=== PATIENT | male | born 1985 | race Caucasian/White ===

== ENCOUNTER 2016-08-25 17:48 | Emergency (ER) | payer OTHER, SELFPAY ==
[2016-08-25 17:59] VITALS: BP 123/67; PULSE 100; O2SAT 96
[2016-08-25] MEDS ORDERED: XYLOCAINE 1% HCL 20 ML MDV IJ ONE (18:13)
[2016-08-25] MEDS ORDERED: BACIGUENT PACKET TP ONE (18:13)
[2016-08-25] MEDS ORDERED: XYLOCAINE 1% HCL 20 ML MDV ONE (18:14)
--- NOTE | 2016-08-25 18:25 | ERPHSYRPT ---
- History of Present Illness Time Seen by Provider: 08/25/16 18:02 Source: patient, family Patient Subjective Stated Complaint: PT WAS ATTEMPTING TO OPEN HIS WINDOW WITH A KNIFE WHEN HE ACCIDENTLY CUT HIS POINTER FINGER OF RIGHT HAND-REPORTS NUMBNESS TO FINGER Triage Nursing Assessment: LAC NOTED TO FINGER-BLEEDING CONTROLLED DAMPPROOFER-CAP REFILL 2 SECONDS Physician History: CC: cut to the right index finger Hx: 30 y/o healthy patient of Dr Lr with up to date tetanus vaccination. He cut right index finger on his knife trying to open car glass. No other injuries. Has some nubm feeling at the tip. He had prior hand injury with resultant numbness in some other fingers. Occurred: just prior to arrival Extremities Pain Location: 2nd finger: right Allergies/Adverse Reactions: Penicillins Allergy (Severe, Verified 03/06/16 16:42) Difficulty Breathing Home Medications: Alprazolam 1 mg [Xanax 1 mg] 1 mg PO BID 03/06/16 [History] Fenofibrate Nanocrystallized [Tricor] 48 mg PO DAILY 03/06/16 [History] Permethrin Cream [Elimite CREAM] 60 gm TP UD 03/06/16 [History] Quetiapine Fumarate [Seroquel Xr] 150 mg PO HS 03/06/16 [History] Hx Tetanus, Diphtheria Vaccination/Date Given: Yes Hx Influenza Vaccination/Date Given: No Hx Pneumococcal Vaccination/Date Given: No Immunizations Up to Date: Yes - Review of Systems Constitutional: No Symptoms Neurological: Parasthesia, No Paralysis - Past Medical History Pertinent Past Medical History: Yes Musculoskeletal History: Fractures Psycho-Social History: Anxiety Other Medical History: HAND, LEG, FACE - Past Surgical History Past Surgical History: Yes Other Surgical History: T&A - Social History Smoking Status: Current every day smoker How long have you smoked: 12 Exposure to second hand smoke: Yes Drug Use: none Patient Lives Alone: No - Nursing Vital Signs Nursing Vital Signs: Initial Vital Signs Temperature 99.0 F Temperature Source Oral Pulse Rate 100 Respiratory Rate 22 Blood Pressure [Left Arm] 123/67 Pain Intensity 0 - Physical Exam General Appearance: alert Cardiovascular/Respiratory Exam: regular rate/rhythm Neuro/Tendon Exam: normal motor functions Mental Status Exam: alert, oriented x 3, cooperative Skin Exam: warm, dry SpO2: 96 Oxygen Delivery: Room Air Comments: 1.5 cm laceration right index finger radial side between PIP and DIP. ROM intact. Mild decrease in 2 point not much different than other fingers of that hand. Can not rule out partial nerve injury and this was explained to pt. No FB noted. Procedures - Laceration/Wound Repair rightindex finger Wound Length (cm): 1.5 Wound's Depth, Shape: linear Wound Explored: clean Irrigated: Yes Hibiclens Prep: Yes Anesthesia: digital block, 1% Lidocaine Volume Anesthetic (ccs): 4 Wound Repaired With: sutures Suture Size/Type: 4-0, prolene Number of Sutures: 3 - Course Nursing assessment & vital signs reviewed: Yes Ordered Tests: Active Orders 24 hr Category Date Time Status Prepare for Sutures STAT Care 08/25/16 18:13 Active Sutures STAT Care 08/25/16 18:13 Active Wound Care STAT Care 08/25/16 18:13 Active Medication Summary Discontinued Medications Generic Name Dose Route Start Last Admin Trade Name Freq PRN Reason Stop Dose Admin Bacitracin 0.9 gm 08/25/16 18:13 08/25/16 18:16 Baciguent Packet TP 08/25/16 18:14 0.9 gm STAT ONE Administration Lidocaine HCl 5 ml 08/25/16 18:13 08/25/16 18:16 Xylocaine 1% Hcl 20 Ml Mdv IJ 08/25/16 18:14 5 ml STAT ONE Administration Lidocaine HCl Confirm 08/25/16 18:14 Xylocaine 1% Hcl 20 Ml Mdv Administered 08/25/16 18:15 Dose 1 ml .ROUTE .STK-MED ONE - Progress Progress Note: 08/25/16 18:24 Discussed referral to hand surgeon next week if numbness is bothersome. He does not plan to see hand. Will repair skin. Wound instr given. Counseled pt/family regarding: diagnosis, need for follow-up - Departure Time of Disposition: 18:56 Departure Disposition: Home Clinical Impression: Laceration of right index finger Condition: Stable Critical Care Time: No Referrals: DOCTOR,NO FAMILY [Primary Care Provider] - KRISTEN LR [COURTESY STAFF] - Instructions: Care for a Laceration After Repair Additional Instructions: LACERATION CARE 1. Do not use peroxide, merthiolate, alcohol, or betadine. 2. Keep wound clean and dry. 3. Change dressing if it becomes wet or soiled. 4. If you must work, wear protective covering. 5. You may return to the emergency department or see your family physician for suture removal. 6. See your family physician or return to the emergency department for any of the following signs or symptoms: A. Redness B. Swelling C. Discolored drainage D. Red streaks E. Elevated temperature F. Other signs of infection Suture removal in 10 days. Report any sign of infection right away.
[2016-08-25] MEDS ORDERED: BACIGUENT PACKET ONE (19:28)
== END 2016-08-25 19:39 | disposition home or self-care (01) ==
LOC: ED 17:48
PROC: 0HQFXZZ Repair Right Hand Skin, External Approach (ICD-10-PCS; principal; 2016-08-25)
DX: S61.210A Laceration without foreign body of right index finger without damage to nail, initial encounter (principal); W26.0XXA Contact with knife, initial encounter
CPT/HCPCS: 12001; 99283

== ENCOUNTER 2016-12-31 17:20 | Emergency (ER) | payer OTHER ==
[2016-12-31] MEDS ORDERED: DUONEB 0.5-3 MG/3 ml Neb IH ONE ×2 (17:50→17:53)
--- NOTE | 2016-12-31 17:52 | ERPHSYRPT ---
- History of Present Illness Source: patient Exam Limitations: no limitations Patient Subjective Stated Complaint: PT REPORTS SORE THROAT BEGINNING YESTERDAY- PRODUCTIVE COUGH BEGINNING TODAY-NEON GREEN SPUTUM-REPORTS SORENESS WHEN COUGHING-UNSURE OF FEVER Triage Nursing Assessment: PT PINK WARM ET KEW-CODCO-RN RESP DISTRESS NOTED- LUNGS CLEAR BILATERALLY-NO RETRACTIONS NOTED-NASAL CONGESTION NOTED Timing/Duration: yesterday Cough Quality/Degree: productive cough Possible Cause: no prior episodes Modifying Factors: Improves With: coughing Associated Symptoms: cough, sore throat Hx Tetanus, Diphtheria Vaccination/Date Given: Yes Hx Influenza Vaccination/Date Given: No Hx Pneumococcal Vaccination/Date Given: No Immunizations Up to Date: Yes <JOSSELINE STEVENSON - Last Filed: 12/31/16 19:03> <ABRAHAM VU - Last Filed: 12/31/16 19:55> - History of Present Illness Time Seen by Provider: 12/31/16 17:46 Physician History: The patient is a 31-year-old male complaining of a sore throat and a cough since yesterday. He smokes. He did not get his flu shot. His been coughing so hard that he sometimes vomits. (JOSSELINE STEVENSON) Allergies/Adverse Reactions: Penicillins Allergy (Severe, Verified 12/31/16 17:25) Difficulty Breathing Home Medications: Fenofibrate Nanocrystallized [Tricor] 48 mg PO DAILY 03/06/16 [History] Quetiapine Fumarate [Seroquel Xr] 150 mg PO HS 03/06/16 [History] Fenofibrate Nanocrystallized [Fenofibrate] 145 mg PO DAILY 12/31/16 [History] Paroxetine HCl [Paxil] 20 mg PO DAILY 12/31/16 [History] Trazodone HCl 200 mg PO HS 12/31/16 [History] - Review of Systems Constitutional: No Fever, No Chills Eyes: No Symptoms Ears, Nose, & Throat: Nose Congestion Respiratory: Cough Cardiac: No Chest Pain, No Edema, No Syncope Abdominal/Gastrointestinal: Vomiting, No Abdominal Pain, No Nausea, No Diarrhea Genitourinary Symptoms: No Dysuria Musculoskeletal: No Back Pain, No Neck Pain Skin: No Rash Neurological: No Dizziness, No Focal Weakness, No Sensory Changes Psychological: No Symptoms Endocrine: No Symptoms Hematologic/Lymphatic: No Symptoms Immunological/Allergic: No Symptoms All Other Systems: Reviewed and Negative <JOSSELINE STEVENSON - Last Filed: 12/31/16 19:03> - Past Medical History Pertinent Past Medical History: Yes Musculoskeletal History: Fractures Psycho-Social History: Anxiety Other Medical History: HAND, LEG, FACE - Past Surgical History Past Surgical History: Yes Other Surgical History: T&A - Social History Smoking Status: Current every day smoker How long have you smoked: 12 Exposure to second hand smoke: Yes Drug Use: none Patient Lives Alone: No <JOSSELINE STEVENSON - Last Filed: 12/31/16 19:03> - Physical Exam General Appearance: no apparent distress, alert Eye Exam: PERRL/EOMI, eyes nml inspection Ears, Nose, Throat Exam: normal ENT inspection, TMs normal, moist mucous membranes, pharyngeal erythema Neck Exam: normal inspection, non-tender, supple, full range of motion Respiratory Exam: wheezing Cardiovascular Exam: regular rate/rhythm, normal heart sounds Gastrointestinal/Abdomen Exam: soft, No tenderness Rectal Exam: not done Back Exam: normal inspection, No CVA tenderness, No vertebral tenderness Extremity Exam: normal inspection, normal range of motion Neurologic Exam: alert, oriented x 3, cooperative, normal mood/affect, sensation nml, No motor deficits Skin Exam: normal color, warm, dry, No rash Lymphatic Exam: No adenopathy SpO2 Interpretation: normal SpO2: 98 Oxygen Delivery: Room Air <JOSSELINE STEVENSON - Last Filed: 12/31/16 19:03> <JOSSELINE STEVENSON - Last Filed: 12/31/16 19:03> - Progress Progress: improved Air Movement: good Blood Culture(s) Obtained: No Antibiotics given: No Counseled pt/family regarding: lab results, diagnosis <ABRAHAM VU - Last Filed: 12/31/16 19:55> - Progress Progress Note: 12/31/16 19:52 Pt. resting comfortably, NAD, O2 sat 99%, RR 14, no resp. difficulty. Given Motrin/Zithromax. (ABRAHAM VU) <JOSSELINE STEVENSON - Last Filed: 12/31/16 19:03> - Departure Time of Disposition: 19:54 Departure Disposition: Home Critical Care Time: No <ABRAHAM VU - Last Filed: 12/31/16 19:55> - Departure Clinical Impression: Acute bronchitis Condition: Stable Referrals: URIEL TOUSSAINT [Primary Care Provider] - Instructions: Cough -- Adult, Bronchitis Additional Instructions: RX: Zpack Motrin or Tylenol for fever/pain Return for worse cough, short of breath, fever, vomiting, dizziness, weakness or any problems. Prescriptions: Azithromycin [Zithromax Tri-Alonzo] 500 mg PO DAILY #3 tablet
[2016-12-31] MEDS ORDERED: MOTRIN 400 MG PO ONE (19:50)
[2016-12-31] MEDS ORDERED: Zithromax 250 MG TABLET PO ONE (19:56)
[2016-12-31] MEDS ORDERED: MOTRIN 400 MG ONE (19:59)
[2016-12-31] MEDS ORDERED: Zithromax 250 MG TABLET ONE (19:59)
[2016-12-31 20:03] VITALS: BP 120/78; PULSE 96; O2SAT 99
== END 2016-12-31 20:03 | disposition home or self-care (01) ==
LOC: ED 17:20
DX: J20.9 Acute bronchitis, unspecified (principal); R05 Cough; J02.9 Acute pharyngitis, unspecified; Z79.899 Other long term (current) drug therapy; R11.10 Vomiting, unspecified
CPT/HCPCS: 87070; 87430; 87631; 94640; 99284; A9270-GY

== ENCOUNTER 2017-04-28 19:17 | Emergency (ER) | payer OTHER ==
--- NOTE | 2017-04-28 19:42 | ERPHSYRPT ---
- History of Present Illness Time Seen by Provider: 04/28/17 19:37 Source: patient Exam Limitations: no limitations Patient Subjective Stated Complaint: fell into hole pain in left foot. no other complaints. able tto walk with pain. Triage Nursing Assessment: alert and oriented swelling to leteral aspect to left foot with swelling. + pedal pulse palpable. Physician History: ABOUT 45 MINUTES AGO AT HOME PT WAS TAKING THE TRASH OUT AND STEPPED IN A HOLE WITH RESULTANT LEFT ANKLE/FOOT PAIN; DENIES PREVIOUS INJURY TO THE LEFT ANKLE; DENIES NUMBNESS OF THE LEFT TOES. PT STATES HE TOOK AN ULTRAM ABOUT 20 MINUTES PRIOR TO ACCIDENT. Allergies/Adverse Reactions: Penicillins Allergy (Severe, Verified 12/31/16 17:25) Difficulty Breathing Home Medications: Fenofibrate Nanocrystallized [Tricor] 48 mg PO DAILY 03/06/16 [History] Quetiapine Fumarate [Seroquel Xr] 150 mg PO HS 03/06/16 [History] Fenofibrate Nanocrystallized [Fenofibrate] 145 mg PO DAILY 12/31/16 [History] Paroxetine HCl [Paxil] 20 mg PO DAILY 12/31/16 [History] Trazodone HCl 200 mg PO HS 12/31/16 [History] Hx Tetanus, Diphtheria Vaccination/Date Given: Yes Hx Influenza Vaccination/Date Given: No Hx Pneumococcal Vaccination/Date Given: No Immunizations Up to Date: Yes - Review of Systems Musculoskeletal: Other (LEFT ANKLE/FOOT PAIN) - Past Medical History Pertinent Past Medical History: Yes Musculoskeletal History: Fractures Psycho-Social History: Anxiety Other Medical History: HAND, LEG, FACE - Past Surgical History Past Surgical History: Yes Other Surgical History: T&A - Social History Smoking Status: Current every day smoker How long have you smoked: 12 Exposure to second hand smoke: Yes Drug Use: none Patient Lives Alone: No - Nursing Vital Signs Nursing Vital Signs: Initial Vital Signs Temperature 97.7 F 04/28/17 19:21 Pulse Rate 84 04/28/17 19:21 Respiratory Rate 16 04/28/17 19:21 Blood Pressure 123/74 04/28/17 19:21 O2 Sat by Pulse Oximetry 98 04/28/17 19:21 Pain Scale Pain Intensity 7 - Physical Exam General Appearance: alert Hips Exam: left: normal range of motion Legs Exam: left leg: normal range of motion Knees Exam: left knee: normal range of motion Ankle Exam: left ankle: normal range of motion, soft tissue tenderness (MILD TENDERNESS OF THE LATERAL ASPECT OF THE LEFT ANKLE WITHOUT EDEMA OR BRUISING.) Foot Exam: left foot: normal range of motion, soft tissue tenderness (MILD TENDERNESS OF THE LATERAL ASPECT OF THE LEFT FOOT WITHOUT EDEMA OR TENDERNESS) Neuro/Tendon Exam: normal sensation, normal motor functions, normal tendon functions Mental Status Exam: alert, cooperative Skin Exam: warm, dry SpO2 Interpretation: normal SpO2: 98 Oxygen Delivery: Room Air - Course Nursing assessment & vital signs reviewed: Yes - Radiology Exams Left Foot X-ray Interpretation: Interpreted by me, No Fracture Left Ankle X-ray Interpretation: Teleradiologist Report (STS. NO FRACTURE.) Ordered Tests: Active Orders 24 hr Category Date Time Status Hubert Bandage Application -[facility] STAT Care 04/28/17 19:40 Active Crutches STAT Care 04/28/17 19:40 Active ANKLE (3 VIEWS) Stat Exams 04/28/17 19:40 Taken FOOT (MINIMUM 3 VIEWS) Stat Exams 04/28/17 19:40 Taken - Departure Time of Disposition: 20:26 Departure Disposition: Home Clinical Impression: LEFT ANKLE/FOOT SPRAIN Condition: Stable Critical Care Time: No Referrals: URIEL TOUSSAINT [Primary Care Provider] - Instructions: Ankle Sprain Additional Instructions: FOLLOW UP WITH PRIVATE DOCTOR TOMORROW. ELEVATE LEFT ANKLE ABOVE HEART LEVEL FOR 24 HOURS. NO WEIGHT BEARING ON LEFT FOOT FOR 4 DAYS. HUBERT BANDAGE TO LEFT ANKLE FOR 4 DAYS. USE CRUTCHES FOR 2 WEEKS. Prescriptions: Naproxen [Naprosyn] 500 mg PO Q12H PRN PRN #20 tablet PRN Reason: Pain
--- NOTE | 2017-04-28 20:54 | XRAY ---
Indication: Pain following injury. Comparison: None 3 nonweightbearing views of the left foot intact with tiny plantar heel spur and posterior talar accessory ossicle. No other bony, articular, or soft tissue abnormalities.
--- NOTE | 2017-04-28 20:56 | XRAY ---
Indication: Pain following injury. Comparison: None 3 views of the left ankle demonstrate soft tissue swelling, tiny plantar heel spur, tiny distal tibial spur anteriorly, and posterior talar accessory ossicle. No other bony, articular, or soft tissue abnormalities. Comment: Preliminary interpretation was made by [facility]. No discrepancy.
[2017-04-28 21:02] VITALS: BP 133/78; PULSE 17; O2SAT 100
== END 2017-04-28 20:31 | disposition home or self-care (01) ==
LOC: ED 19:17
DX: S93.602A Unspecified sprain of left foot, initial encounter (principal); S93.402A Sprain of unspecified ligament of left ankle, initial encounter; W17.2XXA Fall into hole, initial encounter; M25.572 Pain in left ankle and joints of left foot
CPT/HCPCS: 73610; 73630; 99283

== ENCOUNTER 2017-07-03 22:33 | Emergency (ER) | payer OTHER ==
[2017-07-03 22:55] VITALS: BP 115/67; PULSE 86; O2SAT 95
[2017-07-03] MEDS ORDERED: Vibramycin 100 MG PO ONE (23:37)
--- NOTE | 2017-07-03 23:41 | ERPHSYRPT ---
- History of Present Illness Time Seen by Provider: 07/03/17 23:35 Source: patient Patient Subjective Stated Complaint: pt states he has an abcess on his neck that began about 4 days ago Triage Nursing Assessment: pt alert and oriented, answers qeustions approp. pt ambulatory with steady gait noted. respirations nonlabored with lungs cta. scab noted to rt lateral neck with redness surrounding approx 1.5x 1cm Physician History: CC: lesion right neck Hx: 31 y/o patient of Dr Shrestha with sore on right neck for 4 days. GF poked it with a needle. Not much drng. No fever or chills. Tetanus up to date. No hx of MRSA. No other lesions. Some discomfort. Allergies/Adverse Reactions: Penicillins Allergy (Severe, Verified 07/03/17 22:55) Difficulty Breathing Home Medications: Quetiapine Fumarate [Seroquel Xr] 150 mg PO HS 03/06/16 [History] Paroxetine HCl [Paxil] 20 mg PO DAILY 12/31/16 [History] Trazodone HCl 200 mg PO HS 12/31/16 [History] Gabapentin 300 mg PO TID 07/03/17 [History] Tramadol HCl 50 mg [Ultram 50 mg] 50 mg PO Q6H PRN PRN 07/03/17 [History] Hx Tetanus, Diphtheria Vaccination/Date Given: Yes (2015) Hx Influenza Vaccination/Date Given: No Hx Pneumococcal Vaccination/Date Given: No Immunizations Up to Date: Yes - Review of Systems Constitutional: No Fever, No Chills Skin: Skin Lesions Neurological: No Focal Weakness, No Parasthesia - Past Medical History Pertinent Past Medical History: Yes Neurological History: No Pertinent History Cardiac History: No Pertinent History Respiratory History: No Pertinent History Endocrine Medical History: No Pertinent History Musculoskeletal History: Degenerative Disk Disease, Osteoarthritis Psycho-Social History: Anxiety, Depression Other Medical History: Depression, anxiety, insomnia, scoliosis - Past Surgical History Past Surgical History: Yes Other Surgical History: T&A - Social History Smoking Status: Current every day smoker How long have you smoked: 12 Exposure to second hand smoke: Yes Drug Use: none Patient Lives Alone: No - Nursing Vital Signs Nursing Vital Signs: Initial Vital Signs Temperature 98.1 F 07/03/17 22:42 Pulse Rate 86 07/03/17 22:42 Respiratory Rate 16 11/29/17 22:42 Blood Pressure 115/67 07/03/17 22:42 O2 Sat by Pulse Oximetry 95 07/03/17 22:42 Pain Scale Pain Intensity 6 - Physical Exam General Appearance: alert Eye Exam: PERRL/EOMI Ears, Nose, Throat Exam: normal ENT inspection, moist mucous membranes Neck Exam: supple, other (small scabbed lesion right neck with mild redness, no fluctuance, ROM intact) Respiratory Exam: normal breath sounds, lungs clear Cardiovascular Exam: regular rate/rhythm Neurologic Exam: alert, oriented x 3, cooperative Skin Exam: warm SpO2: 95 Oxygen Delivery: Room Air - Course Nursing assessment & vital signs reviewed: Yes - Progress Progress Note: 07/03/17 23:39 Hunter early abscess already drained. Will Rx doxy. Tetanus up to date. Instr given. Counseled pt/family regarding: diagnosis, need for follow-up - Departure Time of Disposition: 23:39 Departure Disposition: Home Clinical Impression: abscess right neck Condition: Stable Critical Care Time: No Referrals: URIEL SHRESTHA [Primary Care Provider] - Instructions: Methicillin-Resistant Staph Infection (MRSA), Cellulitis -- Adult Additional Instructions: WArm compresses 4 times a day. Rx doxycycline. SEe Dr Shrestha Saturday or Saturday if worsens or not improving. Prescriptions: Doxycycline Hyclate 100 mg [Vibramycin 100 MG] 1 tab PO BID #20 tab
[2017-07-03] MEDS ORDERED: Vibramycin 100 MG ONE (23:43)
== END 2017-07-03 23:52 | disposition home or self-care (01) ==
LOC: ED 22:33
DX: L02.11 Cutaneous abscess of neck (principal); Z79.899 Other long term (current) drug therapy
CPT/HCPCS: 99283; A9270-GY

== ENCOUNTER 2017-09-22 21:57 | Emergency (ER) | payer OTHER ==
[2017-09-22 22:21] VITALS: O2SAT 98
--- NOTE | 2017-09-22 22:49 | ERPHSYRPT ---
- History of Present Illness Time Seen by Provider: 09/22/17 22:43 Source: patient, family Exam Limitations: no limitations Patient Subjective Stated Complaint: full feeling in left ear x 3 weeks Triage Nursing Assessment: alert in no distress. fullness feeling in left ear. denies drainage. Physician History: ear fullness for three weeks not going away no n or v and no fever no aching or resp symptoms other family also with similar nasal/ENT symptoms not flu-like but now all have ear infection Severity: moderate ENT Location: ear (L) Associated Symptoms: ear pain (L), nasal congestion/drainage, swollen glands, No cough, No fever Allergies/Adverse Reactions: Penicillins Allergy (Severe, Verified 07/03/17 22:55) Difficulty Breathing Home Medications: Quetiapine Fumarate [Seroquel Xr] 150 mg PO HS 03/06/16 [History] Paroxetine HCl [Paxil] 20 mg PO DAILY 12/31/16 [History] Trazodone HCl 200 mg PO HS 12/31/16 [History] Gabapentin 300 mg PO TID 07/03/17 [History] Tramadol HCl 50 mg [Ultram 50 mg] 50 mg PO Q6H PRN PRN 07/03/17 [History] Hx Tetanus, Diphtheria Vaccination/Date Given: Yes (2015) Hx Influenza Vaccination/Date Given: No Hx Pneumococcal Vaccination/Date Given: No Immunizations Up to Date: Yes - Review of Systems Constitutional: No Fever, No Chills Eyes: No Symptoms Ears, Nose, & Throat: Ear Pain, Nose Congestion Respiratory: No Cough, No Dyspnea Cardiac: No Chest Pain, No Edema, No Syncope Abdominal/Gastrointestinal: No Abdominal Pain, No Nausea, No Vomiting, No Diarrhea Genitourinary Symptoms: No Dysuria Musculoskeletal: No Back Pain, No Neck Pain Skin: No Rash Neurological: No Dizziness, No Focal Weakness, No Sensory Changes Psychological: No Symptoms Endocrine: No Symptoms All Other Systems: Reviewed and Negative - Past Medical History Pertinent Past Medical History: Yes Neurological History: No Pertinent History Cardiac History: No Pertinent History Respiratory History: No Pertinent History Endocrine Medical History: No Pertinent History Musculoskeletal History: Degenerative Disk Disease, Osteoarthritis Psycho-Social History: Anxiety, Depression Other Medical History: Depression, anxiety, insomnia, scoliosis - Past Surgical History Past Surgical History: Yes Other Surgical History: T&A - Social History Smoking Status: Current every day smoker How long have you smoked: 12 Exposure to second hand smoke: No Drug Use: none Patient Lives Alone: No - Nursing Vital Signs Nursing Vital Signs: Initial Vital Signs Temperature 98.8 F 09/22/17 22:06 Pulse Rate 71 09/22/17 22:06 Respiratory Rate 16 09/22/17 22:06 Blood Pressure 148/88 09/22/17 22:06 O2 Sat by Pulse Oximetry 98 09/22/17 22:06 Pain Scale Pain Intensity 2 - Physical Exam General Appearance: no apparent distress, alert Eye Exam: bilateral eye: normal inspection, PERRL, EOMI Ear Exam: left ear: TM red, TM bulging Nasal Exam: discharge Throat Exam: pharynx normal, moist mucus membranes, No tonsillar exudate Neck Exam: supple Cardiovascular/Respiratory Exam: normal breath sounds, regular rate/rhythm Abdominal Exam: non-tender, soft Neurologic Exam: alert, oriented x 3, sensation nml, No motor deficits Skin Exam: normal color, warm, dry SpO2 Interpretation: normal SpO2: 98 Oxygen Delivery: Room Air - Course Nursing assessment & vital signs reviewed: Yes - Progress Counseled pt/family regarding: diagnosis, need for follow-up - Departure Time of Disposition: 22:49 Departure Disposition: Home Clinical Impression: Left otitis media with effusion Condition: Good Critical Care Time: No Referrals: URIEL TOUSSAINT [Primary Care Provider] - Instructions: Ear Infections (Otitis Media) (DC), High Blood Pressure (DC) Additional Instructions: follow up with ENT dr after antibiotics for referral ; followup with your Dr for blood pressure- return meantime if any concerns Prescriptions: Azithromycin 250 mg [Zithromax 250 MG TABLET] 250 mg PO ZPACK #6 tablet
[2017-09-22] MEDS ORDERED: Zithromax 250 MG TABLET PO ONE (22:52)
[2017-09-22] MEDS ORDERED: Zithromax 250 MG TABLET ONE (22:55)
[2017-09-22 23:03] VITALS: BP 142/86; PULSE 68
== END 2017-09-22 23:03 | disposition home or self-care (01) ==
LOC: ED 21:57
DX: H65.92 Unspecified nonsuppurative otitis media, left ear (principal)
CPT/HCPCS: 99283; A9270-GY

== ENCOUNTER 2018-01-05 17:47 | Emergency (ER) | payer OTHER ==
[2018-01-05 18:06] VITALS: O2SAT 97
--- NOTE | 2018-01-05 18:22 | ERPHSYRPT ---
- History of Present Illness Time Seen by Provider: 01/05/18 18:10 Source: patient Exam Limitations: no limitations Patient Subjective Stated Complaint: STATES LAST SATURDAY HAD 31 TEETH EXTRACTED TO GET DENTURES. WAS GIVEN SOME NORCO BUT HAS RUN OUT. TOOK LAST ONE YESTERDAY. TOOK MOTRIN TODAY WITHOUT MUCH RELIEF. Triage Nursing Assessment: AMBULATED TO ROOM PER SELF. SKIN W/D, COLOR NORMAL, RESP EASY. UPPER AND LOWER GUMS OF MOUTH HAVE SLIGHT SWELLING. NO ACTIVE BLEEDING NOTED. Physician History: This is a 32-year-old white male with history of degenerative disc disease, osteoarthritis, anxiety, depression, insomnia, scoliosis Who had all of his teeth pulled last Saturday, December 31 Patient apparently has been having pain since having the teeth pulled he states he took Motrin without relief today. Patient apparently had been given a prescription of hydrocodone however he states he ran out of them. Past medical history includes degenerative disc disease, osteoarthritis, anxiety , depression, insomnia, scoliosis Past surgical history includes tonsillectomy and adenoidectomy Timing/Duration: day(s) (5 days) Severity: moderate Modifying Factors: Improves With: medication (took all of his [place]), other ( Recently had all of his teeth pulled) Associated Symptoms: other (pain in mouth), No nausea, No vomiting, No abdominal pain, No shortness of breath, No heartburn, No diaphoresis, No cough, No chills, No chest pain, No fever, No headaches, No loss of appetite, No malaise, No rash, No syncope, No seizure, No weakness Allergies/Adverse Reactions: Penicillins Allergy (Severe, Verified 01/05/18 18:00) Difficulty Breathing Home Medications: Quetiapine Fumarate [Seroquel Xr] 150 mg PO HS 03/06/16 [History] Paroxetine HCl [Paxil] 20 mg PO DAILY 12/31/16 [History] Trazodone HCl 50 mg PO HS 12/31/16 [History] Gabapentin 300 mg PO TID 07/03/17 [History] Celecoxib 100 mg [celeBREX 100 MG] 100 mg PO DAILY 01/05/18 [History] Methocarbamol [Robaxin-750] 750 mg PO HS 01/05/18 [History] Hx Tetanus, Diphtheria Vaccination/Date Given: Yes Hx Influenza Vaccination/Date Given: No Hx Pneumococcal Vaccination/Date Given: No - Review of Systems Constitutional: No Fever, No Chills Eyes: No Symptoms Ears, Nose, & Throat: Mouth Pain, Other (recently had all of his teeth pulled), No Ear Pain, No Ear Discharge, No Hearing Changes, No Tinnitus, No Nose Pain, No Nose Congestion, No Nose Discharge, No Sinus Drainage, No Epistaxis, No Mouth Swelling, No Loose Teeth, No Throat Pain, No Throat Swelling, No Hoarse, No Painful Swallowing, No Snoring, No Stridor Respiratory: No Cough, No Dyspnea Cardiac: No Chest Pain, No Edema, No Syncope Abdominal/Gastrointestinal: No Abdominal Pain, No Nausea, No Vomiting, No Diarrhea Genitourinary Symptoms: No Dysuria Musculoskeletal: No Back Pain, No Neck Pain Skin: No Rash Neurological: No Dizziness, No Focal Weakness, No Sensory Changes Psychological: No Symptoms Endocrine: No Symptoms All Other Systems: Reviewed and Negative - Past Medical History Pertinent Past Medical History: Yes Neurological History: No Pertinent History Cardiac History: No Pertinent History Respiratory History: No Pertinent History Endocrine Medical History: No Pertinent History Musculoskeletal History: Degenerative Disk Disease, Osteoarthritis Psycho-Social History: Anxiety, Depression Other Medical History: Depression, anxiety, insomnia, scoliosis - Past Surgical History Past Surgical History: Yes Other Surgical History: T&A, TEETH EXTRACTION - Social History Smoking Status: Current every day smoker How long have you smoked: 14 Exposure to second hand smoke: No Drug Use: none Patient Lives Alone: No - Nursing Vital Signs Nursing Vital Signs: Initial Vital Signs Temperature 98.9 F 01/05/18 17:56 Pulse Rate 83 01/05/18 17:56 Respiratory Rate 16 01/05/18 17:56 Blood Pressure 136/79 01/05/18 17:56 O2 Sat by Pulse Oximetry 97 01/05/18 17:56 Pain Scale Pain Intensity 9 - Physical Exam General Appearance: mild distress Eye Exam: PERRL/EOMI, eyes nml inspection, other (fundi are unremarkable) Ears, Nose, Throat Exam: TMs normal, pharynx normal, other (patient status post multiple tooth extractions) Neck Exam: normal inspection, non-tender, supple, full range of motion Respiratory Exam: normal breath sounds, lungs clear, No respiratory distress Cardiovascular Exam: regular rate/rhythm, normal heart sounds, normal peripheral pulses Gastrointestinal/Abdomen Exam: soft, normal bowel sounds, No tenderness, No mass Back Exam: normal inspection, normal range of motion, No CVA tenderness, No vertebral tenderness Extremity Exam: normal inspection, normal range of motion, pelvis stable Neurologic Exam: alert, oriented x 3, cooperative, change management coordinator II-XII nml as tested, normal mood/affect, nml cerebellar function, nml station & gait, sensation nml, No motor deficits Skin Exam: normal color, warm, dry, No rash Lymphatic Exam: No adenopathy SpO2 Interpretation: normal (97%) SpO2: 97 Oxygen Delivery: Room Air - Course Nursing assessment & vital signs reviewed: Yes Ordered Tests: Medication Summary Discontinued Medications Generic Name Dose Route Start Last Admin Trade Name Norah PRN Reason Stop Dose Admin Acetaminophen/Codeine Phosphate 2 tab 01/05/18 18:24 01/05/18 18:40 Tylenol #3 Tablet PO 01/05/18 18:25 2 tab SENT HOME W/ PATIENT ONE Administration Acetaminophen/Codeine Phosphate Confirm 01/05/18 18:36 Tylenol #3 Tablet Administered 01/05/18 18:37 Dose 2 tab .ROUTE .STK-MED ONE Hydrocodone Bitart/Acetaminophen 1 tab 01/05/18 18:24 01/05/18 18:39 Red [place] 5/325 Mg PO 01/05/18 18:25 1 tab STAT ONE Administration Hydrocodone Bitart/Acetaminophen Confirm 01/05/18 18:37 [place] 5/325 Mg Administered 01/05/18 18:38 Dose 1 tab .ROUTE .STK-MED ONE - Progress Progress: improved Progress Note: 01/05/18 18:21 32-year-old white male with history of degenerative disc disease osteoarthritis anxiety depression and insomnia scoliosis. Who has a history of chronic pain and sees a pain missile control pilot. Recently with all of his teeth pulled he apparently was given [place] 5/325 5 days ago however he did taken all of them. Patient states that he is on Celebrex and Robaxin He states he took Motrin today but teeth continued to hurt. Will give patient one [place] tablet 5/325 in the emergency room today and sent him two tylenol #3 to to go home with. He will need to follow-up with his dentist. Or pain missile control pilot 01/05/18 18:45 - Departure Time of Disposition: 18:23 Departure Disposition: Home Clinical Impression: Mouth pain, status post multiple tooth extractions Condition: Fair Critical Care Time: No Referrals: URIEL TOUSSAINT [Primary Care Provider] - Additional Instructions: Return home. Follow-up with your dentist or pain missile control pilot. Return for acute distress or for severe symptoms. tylenol # 3 one every 6 hours as needed # 2 tablets sent home with patient.
[2018-01-05] MEDS ORDERED: Tylenol #3 Tablet PO ONE (18:24)
[2018-01-05] MEDS ORDERED: NORCO 5/325 MG PO ONE (18:24)
[2018-01-05] MEDS ORDERED: Tylenol #3 Tablet ONE (18:36)
[2018-01-05] MEDS ORDERED: NORCO 5/325 MG ONE (18:37)
[2018-01-05 18:52] VITALS: BP 128/88; PULSE 80
== END 2018-01-05 18:52 | disposition home or self-care (01) ==
LOC: ED 17:47
DX: K13.79 Other lesions of oral mucosa (principal); Z98.818 Other dental procedure status
CPT/HCPCS: 99283; A9270-GY

== ENCOUNTER 2018-03-21 22:17 | Emergency (ER) | payer OTHER ==
--- NOTE | 2018-03-21 23:04 | ERPHSYRPT ---
- History of Present Illness Time Seen by Provider: 03/21/18 22:58 Source: patient Exam Limitations: no limitations Patient Subjective Stated Complaint: pt states he had his teeth pulled approx 2 months ago and has a bone spur sticking thru his gumline on the top right side; increased pain and discomfort today. Triage Nursing Assessment: pt a&o x3; skin p, w, & d; ambulated to room per self ; family at bedside. Physician History: The patient is a 32-year-old male with his girlfriend complaining of pain in his right upper gum that began this morning and has worsened throughout the day. He had all of his teeth pulled 2 months ago under anesthesia. Since that time, he said numerous bone fragments come out of different areas of his gums. Today this bone fragment that is coming out is very painful. He will call his dentist on Saturday if it has not completely fallen out by Saturday. He denies fever or chills. Timing/Duration: gradual onset, this afternoon Severity: severe ENT Location: dental Prearrival Treatment: no prearrival treatment Modifying Factors: Improves With: nothing Associated Symptoms: tooth pain Allergies/Adverse Reactions: Penicillins Allergy (Severe, Verified 03/21/18 22:29) Difficulty Breathing Home Medications: Quetiapine Fumarate [Seroquel Xr] 150 mg PO HS 03/06/16 [History] Paroxetine HCl [Paxil] 40 mg PO DAILY 12/31/16 [History] Trazodone HCl 150 mg PO HS 12/31/16 [History] Gabapentin 300 mg PO QID 07/03/17 [History] Methocarbamol [Robaxin-750] 750 mg PO HS 01/05/18 [History] Ranitidine HCl [Zantac] 150 mg PO DAILY 03/21/18 [History] Hx Tetanus, Diphtheria Vaccination/Date Given: Yes Hx Influenza Vaccination/Date Given: No Hx Pneumococcal Vaccination/Date Given: No Immunizations Up to Date: No - Review of Systems Constitutional: No Fever, No Chills Eyes: No Symptoms Ears, Nose, & Throat: Other (gum pain) Respiratory: No Cough, No Dyspnea Cardiac: No Chest Pain, No Edema, No Syncope Abdominal/Gastrointestinal: No Abdominal Pain, No Nausea, No Vomiting, No Diarrhea Genitourinary Symptoms: No Dysuria Musculoskeletal: No Back Pain, No Neck Pain Skin: No Rash Neurological: No Dizziness, No Focal Weakness, No Sensory Changes Psychological: No Symptoms Endocrine: No Symptoms Hematologic/Lymphatic: No Symptoms Immunological/Allergic: No Symptoms All Other Systems: Reviewed and Negative - Past Medical History Pertinent Past Medical History: Yes Neurological History: No Pertinent History Cardiac History: No Pertinent History Respiratory History: No Pertinent History Endocrine Medical History: No Pertinent History Musculoskeletal History: Degenerative Disk Disease, Osteoarthritis Psycho-Social History: Anxiety, Depression Other Medical History: Depression, anxiety, insomnia, scoliosis - Past Surgical History Past Surgical History: Yes Other Surgical History: T&A, TEETH EXTRACTION - Social History Smoking Status: Current every day smoker How long have you smoked: 15 Exposure to second hand smoke: No Drug Use: none Patient Lives Alone: No - Nursing Vital Signs Nursing Vital Signs: Initial Vital Signs Temperature 98.3 F 03/21/18 22:21 Pulse Rate 68 03/21/18 22:21 Respiratory Rate 18 03/21/18 22:21 Blood Pressure 144/93 03/21/18 22:21 O2 Sat by Pulse Oximetry 98 03/21/18 22:21 Pain Scale Pain Intensity 9 - Physical Exam General Appearance: mild distress Eye Exam: bilateral eye: PERRL, EOMI Ear Exam: bilateral ear: auricle normal Nasal Exam: normal inspection Throat Exam: maxillary swelling (The patient has all of his dentition surgically removed. There is a small bone fragment that is beginning to protrude from the upper right anterior aspect of his gums. There is surrounding erythema and swelling.) Neck Exam: supple Cardiovascular/Respiratory Exam: normal breath sounds, regular rate/rhythm Abdominal Exam: non-tender, soft Neurologic Exam: alert, oriented x 3, sensation nml, No motor deficits Skin Exam: normal color, warm, dry SpO2 Interpretation: normal SpO2: 98 Oxygen Delivery: Room Air - Progress Progress: improved Counseled pt/family regarding: diagnosis, need for follow-up - Departure Time of Disposition: 23:08 Departure Disposition: Home Clinical Impression: Dental abscess Condition: Stable Critical Care Time: No Referrals: URIEL TOUSSAINT [Primary Care Provider] - Additional Instructions: You have a dental abscess on the right upper side of her mouth. You have a bone fragment from prior surgical removal of your teeth is beginning to protrude through your gum line. You were given Toradol 60 mg by IM and clindamycin 300 mg orally in the ER. You may take Schlater one tablet every 4-6 hours as needed. Take clindamycin 300 mg 4 times a day for 10 days. Call your dentist on Saturday for further evaluation. Prescriptions: Clindamycin HCl 1 cap PO QID #40 capsule
[2018-03-21] MEDS ORDERED: TORAdol 30 mg Injection IM ONE (23:09)
[2018-03-21] MEDS ORDERED: CLEOCIN 150 MG CAPSULE PO ONE (23:09)
[2018-03-21] MEDS ORDERED: NORCO 5/325 MG PO ONE (23:11)
[2018-03-21] MEDS ORDERED: TORAdol 30 mg Injection ONE (23:29)
[2018-03-21] MEDS ORDERED: NORCO 5/325 MG ONE (23:29)
[2018-03-21] MEDS ORDERED: CLEOCIN 150 MG CAPSULE ONE (23:29)
[2018-03-21 23:42] VITALS: BP 127/89; PULSE 87; O2SAT 96
== END 2018-03-21 23:45 | disposition home or self-care (01) ==
LOC: ED 22:17
DX: K04.7 Periapical abscess without sinus (principal)
CPT/HCPCS: 96372; 99283; J1885; A9270-GY

== ENCOUNTER 2019-03-28 21:55 | Emergency (ER) | payer OTHER ==
[2019-03-28] MEDS ORDERED: DUONEB 0.5-3 MG/3 ml Neb IH ONE ×4 (22:07→23:51)
--- NOTE | 2019-03-28 22:11 | ERPHSYRPT ---
- History of Present Illness Time Seen by Provider: 03/28/19 22:01 Source: patient Exam Limitations: no limitations Physician History: Pt states, he has been congested, coughing for few days, coughing up clear phlegm and vomiting occasionally after coughing, developed sudden SOB 1 hour ago , when bathing his dogs. He denies fever, chills, no chest pain, vomiting blood or coffee ground material, no diarrhea, or other complaints. Timing/Duration: hour(s) (1) Activities at Onset: activity Severity of Dyspnea-Max: severe Severity of Dyspnea-Current: moderate Possible Cause: no prior episodes Modifying Factors: Improves With: deep breath Associated Symptoms: cough, productive cough Allergies/Adverse Reactions: Penicillins Allergy (Severe, Verified 03/28/19 22:09) Difficulty Breathing Home Medications: Quetiapine Fumarate [Seroquel Xr] 150 mg PO HS 03/06/16 [History] Paroxetine HCl [Paxil] 40 mg PO DAILY 12/31/16 [History] Trazodone HCl 150 mg PO HS 12/31/16 [History] Gabapentin 300 mg PO QID 07/03/17 [History] Methocarbamol [Robaxin-750] 750 mg PO HS 01/05/18 [History] Ranitidine HCl [Zantac] 150 mg PO DAILY 03/21/18 [History] Hx Tetanus, Diphtheria Vaccination/Date Given: Yes Hx Influenza Vaccination/Date Given: No Hx Pneumococcal Vaccination/Date Given: No - Review of Systems Constitutional: No Symptoms Ears, Nose, & Throat: No Symptoms Respiratory: Cough, Dyspnea Cardiac: No Symptoms Abdominal/Gastrointestinal: Vomiting Genitourinary Symptoms: No Symptoms Musculoskeletal: No Symptoms Skin: No Symptoms Neurological: No Symptoms All Other Systems: Reviewed and Negative - Past Medical History Pertinent Past Medical History: Yes Neurological History: No Pertinent History Cardiac History: No Pertinent History Respiratory History: No Pertinent History Endocrine Medical History: Moore's Disease Musculoskeletal History: Degenerative Disk Disease Psycho-Social History: Anxiety, Depression Other Medical History: History of DDD along spine. - Past Surgical History Past Surgical History: Yes Other Surgical History: T&A, TEETH EXTRACTION - Social History Smoking Status: Current every day smoker How long have you smoked: 15 Exposure to second hand smoke: No Drug Use: none Patient Lives Alone: No - Nursing Vital Signs Nursing Vital Signs: Initial Vital Signs Temperature 98.5 F 03/28/19 21:56 Pulse Rate 98 H 03/28/19 21:56 Respiratory Rate 18 03/28/19 21:56 Blood Pressure 126/88 03/28/19 21:56 O2 Sat by Pulse Oximetry 96 03/28/19 21:56 Pain Scale Pain Intensity 8 - Physical Exam General Appearance: no apparent distress Eye Exam: eyes nml inspection Ears, Nose, Throat Exam: hearing grossly normal, normal ENT inspection, normal pharynx Neck Exam: normal inspection, non-tender, supple, No carotid bruit, No JVD, No lymphadenopathy (R), No lymphadenopathy (L) Respiratory Exam: normal breath sounds, lungs clear, airway intact, No chest tenderness, No respiratory distress Cardiovascular/Chest Exam: normal heart sounds, regular rate/rhythm, normal peripheral pulses, No murmur, No edema, No JVD Abdominal/Gastrointestinal Exam: soft, normal bowel sounds, No tenderness, No distention, No mass, No guarding, No rebound, No organomegaly Extremity Exam: non-tender, No no calf tenderness, No no pedal edema, No cleo' s sign Peripheral Pulses Exam: dorsalis-pedis (R): 2+, dorsalis-pedis (L): 2+ Neurologic Exam: alert, oriented x 3, cooperative, normal mood/affect Skin Exam: normal color, warm, dry, No rash, No petechiae, No cyanosis, No diaphoresis Lymphatic Exam: No adenopathy SpO2 Interpretation: normal O2 Delivery: Room Air - Course Nursing assessment & vital signs reviewed: Yes EKG Interpreted by Me: RATE (103/min), Sinus Tach, NORMAL AXIS, NORMAL QRS, Non- specific ST Changes, Other (repeat Ek:29 AM: NSR 83/min, unchanged, negative) - Radiology Exams Chest X-ray Interpretation: Interpreted by me, Negative Ordered Tests: Active Orders 24 hr Category Date Time Status Agency Appointments Supervisor STAT Care 03/28/19 22:06 Active EKG-ER Only STAT Care 03/28/19 22:05 Active EKG-ER Only [facility] 03/29/19 00:08 Active IV Insertion [facility] 03/28/19 22:05 Active CHEST 2 VIEWS (PA AND LAT) Stat Exams 03/28/19 22:05 Taken CBC W DIFF Stat Lab 03/28/19 22:14 Completed CK-Creatinine Phosphokinase Stat Lab 03/28/19 22:14 Completed CMP Stat Lab 03/28/19 22:14 Completed D-DIMER QUANTITATION Stat Lab 03/28/19 22:14 Completed Lactic Acid Stat Lab 03/28/19 22:05 Completed MAGNESIUM Stat Lab 03/28/19 22:14 Completed NT PRO BNP Stat Lab 03/28/19 22:14 Completed PROTIME WITH INR Stat Lab 03/28/19 22:14 Completed PTT Stat Lab 03/28/19 22:14 Completed TROPONIN Q3H Lab 03/28/19 22:14 Completed TROPONIN Q3H Lab 03/29/19 00:33 Completed TROPONIN Q3H Lab 03/29/19 03:15 Ordered TROPONIN Q3H Lab 03/29/19 06:15 Ordered TROPONIN Q3H Lab 03/29/19 09:15 Ordered Urine Triage Profile Stat Lab 03/28/19 23:40 Completed Peak Expiratory Flow Rate ONCE RT 03/28/19 22:33 Active Respiratory Therapy Assessment DAILY RT 03/28/19 22:34 Active Medication Summary Discontinued Medications Generic Name Dose Route Start Last Admin Trade Name Freq PRN Reason Stop Dose Admin Albuterol/Ipratropium 3 ml 03/28/19 22:07 03/28/19 22:31 Duoneb 0.5-3 Mg/3 Ml Neb IH 03/28/19 22:08 3 ml STAT ONE Administration Albuterol/Ipratropium Confirm 03/28/19 22:21 Duoneb 0.5-3 Mg/3 Ml Neb Administered 03/28/19 22:22 Dose 3 ml IH .STK-MED ONE Albuterol/Ipratropium 3 ml 03/28/19 23:39 03/28/19 23:54 Duoneb 0.5-3 Mg/3 Ml Neb IH 03/28/19 23:40 3 ml STAT ONE Administration Albuterol/Ipratropium Confirm 03/28/19 23:51 Duoneb 0.5-3 Mg/3 Ml Neb Administered 03/28/19 23:52 Dose 3 ml IH .STK-MED ONE Lab/Rad Data: Laboratory Result Diagrams 03/28/19 22:14 03/28/19 22:14 Laboratory Results 03/29/19 03/28/19 03/28/19 Range/Units 00:33 23:40 22:14 WBC (4.0-10.5) K/mm3 RBC (4.1-5.6) M/mm3 Hgb (12.5-18.0) gm/dl Hct (42-50) % MCV (78-100) fl MCH (26-32) pg MCHC (32-36) g/dl RDW (11.5-14.0) % Plt Count (150-450) K/mm3 MPV (6-9.5) fl Gran % (36.0-66.0) % Eos # (Auto) (0-0.5) Absolute Lymphs (auto) (1.0-4.6) Absolute Monos (auto) (0.0-1.3) Lymphocytes % (24.0-44.0) % Monocytes % (0.0-12.0) % Eosinophils % (0.00-5.0) % Basophils % (0.0-0.4) % Absolute Granulocytes (1.4-6.9) Basophils # (0-0.4) PT (8.83-12.87) SECONDS INR (0.8-3.0) APTT (24.1-36.1) SECONDS D-Dimer (215-500) ng/mL Sodium (137-145) mmol/L Potassium (3.5-5.1) mmol/L Chloride (98-107) mmol/L Carbon Dioxide (22-30) mmol/L Anion Gap (5-15) MEQ/L BUN (9-20) mg/dL Creatinine (0.66-1.25) mg/dL Estimated GFR ML/MIN Glucose (74-106) mg/dL Lactic Acid (0.4-2.0) Calcium (8.4-10.2) mg/dL Magnesium (1.6-2.3) mg/dL Total Bilirubin (0.2-1.3) mg/dL AST (17-59) U/L ALT (0-50) U/L Alkaline Phosphatase (38-126) U/L Creatine Kinase (55-170) U/L Troponin I < 0.012 < 0.012 (0.000-0.034) ng/mL NT-Pro-B Natriuret Pep (0-450) pg/mL Serum Total Protein (6.3-8.2) g/dL Albumin (3.5-5.0) g/dL Urine Opiates Level NEGATIVE (NEGATIVE) Ur Methadone NEGATIVE (NEGATIVE) Urine Barbiturates NEGATIVE (NEGATIVE) Ur Phencyclidine (PCP) NEGATIVE (NEGATIVE) Urine Amphetamine NEGATIVE (NEGATIVE) U Benzodiazepine Level NEGATIVE (NEGATIVE) Urine Cocaine NEGATIVE (NEGATIVE) Urine Marijuana (THC) NEGATIVE (NEGATIVE) 03/28/19 03/28/19 03/28/19 Range/Units 22:14 22:14 22:14 WBC 7.9 (4.0-10.5) K/mm3 RBC 4.81 (4.1-5.6) M/mm3 Hgb 14.9 (12.5-18.0) gm/dl Hct 44.7 (42-50) % MCV 92.9 (78-100) fl MCH 31.0 (26-32) pg MCHC 33.3 (32-36) g/dl RDW 13.9 (11.5-14.0) % Plt Count 282 (150-450) K/mm3 MPV 9.7 H (6-9.5) fl Gran % 56.6 (36.0-66.0) % Eos # (Auto) 0.54 H (0-0.5) Absolute Lymphs (auto) 2.11 (1.0-4.6) Absolute Monos (auto) 0.76 (0.0-1.3) Lymphocytes % 26.8 (24.0-44.0) % Monocytes % 9.6 (0.0-12.0) % Eosinophils % 6.9 H (0.00-5.0) % Basophils % 0.1 (0.0-0.4) % Absolute Granulocytes 4.46 (1.4-6.9) Basophils # 0.01 (0-0.4) PT 11.2 (8.83-12.87) SECONDS INR 0.99 (0.8-3.0) APTT 33.7 (24.1-36.1) SECONDS D-Dimer 296 (215-500) ng/mL Sodium 142 (137-145) mmol/L Potassium 3.9 (3.5-5.1) mmol/L Chloride 106 (98-107) mmol/L Carbon Dioxide 28 (22-30) mmol/L Anion Gap 11.9 (5-15) MEQ/L BUN 11 (9-20) mg/dL Creatinine 1.20 (0.66-1.25) mg/dL Estimated GFR > 60.0 ML/MIN Glucose 94 (74-106) mg/dL Lactic Acid (0.4-2.0) Calcium 9.6 (8.4-10.2) mg/dL Magnesium 2.0 (1.6-2.3) mg/dL Total Bilirubin 0.30 (0.2-1.3) mg/dL AST 28 (17-59) U/L ALT 33 (0-50) U/L Alkaline Phosphatase 44 (38-126) U/L Creatine Kinase 99 (55-170) U/L Troponin I (0.000-0.034) ng/mL NT-Pro-B Natriuret Pep 24.7 (0-450) pg/mL Serum Total Protein 7.5 (6.3-8.2) g/dL Albumin 4.4 (3.5-5.0) g/dL Urine Opiates Level (NEGATIVE) Ur Methadone (NEGATIVE) Urine Barbiturates (NEGATIVE) Ur Phencyclidine (PCP) (NEGATIVE) Urine Amphetamine (NEGATIVE) U Benzodiazepine Level (NEGATIVE) Urine Cocaine (NEGATIVE) Urine Marijuana (THC) (NEGATIVE) 03/28/19 Range/Units 22:05 WBC (4.0-10.5) K/mm3 RBC (4.1-5.6) M/mm3 Hgb (12.5-18.0) gm/dl Hct (42-50) % MCV (78-100) fl MCH (26-32) pg MCHC (32-36) g/dl RDW (11.5-14.0) % Plt Count (150-450) K/mm3 MPV (6-9.5) fl Gran % (36.0-66.0) % Eos # (Auto) (0-0.5) Absolute Lymphs (auto) (1.0-4.6) Absolute Monos (auto) (0.0-1.3) Lymphocytes % (24.0-44.0) % Monocytes % (0.0-12.0) % Eosinophils % (0.00-5.0) % Basophils % (0.0-0.4) % Absolute Granulocytes (1.4-6.9) Basophils # (0-0.4) PT (8.83-12.87) SECONDS INR (0.8-3.0) APTT (24.1-36.1) SECONDS D-Dimer (215-500) ng/mL Sodium (137-145) mmol/L Potassium (3.5-5.1) mmol/L Chloride (98-107) mmol/L Carbon Dioxide (22-30) mmol/L Anion Gap (5-15) MEQ/L BUN (9-20) mg/dL Creatinine (0.66-1.25) mg/dL Estimated GFR ML/MIN Glucose (74-106) mg/dL Lactic Acid 1.5 (0.4-2.0) Calcium (8.4-10.2) mg/dL Magnesium (1.6-2.3) mg/dL Total Bilirubin (0.2-1.3) mg/dL AST (17-59) U/L ALT (0-50) U/L Alkaline Phosphatase (38-126) U/L Creatine Kinase (55-170) U/L Troponin I (0.000-0.034) ng/mL NT-Pro-B Natriuret Pep (0-450) pg/mL Serum Total Protein (6.3-8.2) g/dL Albumin (3.5-5.0) g/dL Urine Opiates Level (NEGATIVE) Ur Methadone (NEGATIVE) Urine Barbiturates (NEGATIVE) Ur Phencyclidine (PCP) (NEGATIVE) Urine Amphetamine (NEGATIVE) U Benzodiazepine Level (NEGATIVE) Urine Cocaine (NEGATIVE) Urine Marijuana (THC) (NEGATIVE) - Progress Progress: improved Air Movement: good Progress Note: 03/29/19 00:36 Pt states, improved after 2 Duonebs; he has been afebrile, denies chest pain, or severe SOB, reviewed his labs and X ray, repeat troponin is negative, discussed with her, he is discharged in stable condition and advised to rest x 2 -3 days, drink plenty of fluids, and follow up with his physician in 2-3 days. Blood Culture(s) Obtained: No Antibiotics given: Yes (Z-Alonzo) Counseled pt/family regarding: lab results, diagnosis, need for follow-up, rad results - Departure Departure Disposition: Home Clinical Impression: Bronchitis Condition: Stable Critical Care Time: No Referrals: URIEL TOUSSAINT [Primary Care Provider] - Instructions: Acute Bronchitis, Adult (DC) Additional Instructions: Rest x 2-3 days, drink plenty of fluids, and follow up with your physician in 2- 3 days, return if severe shortness of breath, chest pain, vomiting, fever> 102 F ! Prescriptions: Albuterol Sulfate [Albuterol Sulfate Hfa] 8.5 gm IH Q4H PRN #2 [email or web address] PRN Reason: Shortness Of Breath/Wheezing Azithromycin [Zithromax] 250 mg PO DAILY 5 Days #6 tablet Methylprednisolone Packet [Medrol Dosepack] 4 mg PO UD #1 packet
[2019-03-28 22:34] LABS: INR 0.99 (0.8-3.0); PROTIME 11.2 SECONDS (8.83-12.87)
[2019-03-28 22:36] LABS: PTT 33.7 SECONDS (24.1-36.1)
[2019-03-28 22:41] LABS: BASOPHIL % 0.1 % (0.0-0.4); Basophil (Absolute #) 0.01 (0-0.4); Eosinophil % 6.9 % (0.00-5.0); Eosinophil (Absolute #) 0.54 (0-0.5); Granulocyte Absolute (ANC) 4.46 (1.4-6.9); Granulocytes % 56.6 % (36.0-66.0); Hematocrit 44.7 % (42-50); Hemoglobin 14.9 gm/dl (12.5-18.0); Lymphocyte (Absolute #) 2.11 (1.0-4.6); Lymphocytes % 26.8 % (24.0-44.0); Mean Cell Volume 92.9 fl (78-100); Mean Corpuscular Hgb Concent. 33.3 g/dl (32-36); Mean Platelet Volume 9.7 fl (6-9.5); Monocyte (Absolute #) 0.76 (0.0-1.3); Monocytes % 9.6 % (0.0-12.0); Platelet Count 282 K/mm3 (150-450); Red Blood Count 4.81 M/mm3 (4.1-5.6); Red Cell Distribution Width 13.9 % (11.5-14.0); White Blood Count 7.9 K/mm3 (4.0-10.5)
[2019-03-28 22:47] LABS: ALBUMIN 4.4 g/dL (3.5-5.0); ALKALINE PHOSPHATASE 44 U/L (38-126); ANION GAP 11.9 MEQ/L (5-15); BLOOD UREA NITROGEN 11 mg/dL (9-20); CHLORIDE 106 mmol/L (98-107); CK-Creatinine Phosphokinase 99 U/L (55-170); Calcium 9.6 mg/dL (8.4-10.2); Carbon Dioxide 28 mmol/L (22-30); Glucose 94 mg/dL (74-106); NT PRO BNP 24.7 pg/mL (0-450); Potassium 3.9 mmol/L (3.5-5.1); SGOT/AST 28 U/L (17-59); SGPT/ALT 33 U/L (0-50); SODIUM 142 mmol/L (137-145); Total Protein 7.5 g/dL (6.3-8.2)
[2019-03-28 23:58] LABS: Amphetamine,Urine NEGATIVE (NEGATIVE); Barbiturate,Urine NEGATIVE (NEGATIVE); Benzodiazepine,Urine NEGATIVE (NEGATIVE); Cocaine,Urine NEGATIVE (NEGATIVE); Methadone,Urine NEGATIVE (NEGATIVE); Opiate,Urine NEGATIVE (NEGATIVE); PCP,Urine NEGATIVE (NEGATIVE); THC,Urine NEGATIVE (NEGATIVE)
[2019-03-29 01:06] VITALS: BP 130/80; PULSE 98; O2SAT 99
--- NOTE | 2019-03-29 06:57 | XRAY ---
Indication: Chest pain, nausea, vomiting, sneezing, and sinus congestion. Comparison: None PA/lateral chest is clear. Heart and mediastinal structures within normal limits. Bony thorax intact. Impression: Nonacute chest.
== END 2019-03-29 01:29 | disposition home or self-care (01) ==
LOC: ED 21:55
DX: J40 Bronchitis, not specified as acute or chronic (principal)
CPT/HCPCS: 36000; 36415; 71046; 80053; 80307; 82550; 83605; 83735; 83880; 84484; 85025; 85379; 85610; 85730; 93005; 93041; 94150; 94640; 99284; A9270-GY

== ENCOUNTER 2019-08-27 08:54 | Emergency (ER) | payer OTHER ==
[2019-08-27] MEDS ORDERED: BABY ASPIRIN 81 MG CHEW PO ONE (09:14)
[2019-08-27] MEDS ORDERED: Sodium Chloride 0.9% 1000 ML 1,000 ML IV STA (09:14)
[2019-08-27] MEDS ORDERED: Zofran 4 MG/2 ML VIAL IV ONE (09:16)
--- NOTE | 2019-08-27 09:39 | ERPHSYRPT ---
- History of Present Illness Time Seen by Provider: 08/27/19 09:07 Source: patient Exam Limitations: no limitations Patient Subjective Stated Complaint: states on saturday had a dizzy spell and checked blood sugar and it was 93. had another dizzy spell today and wants to get checked. also having chronic pain in both feet and ankles. denies any other symptoms. Triage Nursing Assessment: ambulated to room per self. skin w/d, color normal, resp easy. medhat. a/o times four. orta without difficulty Physician History: Patient is here with dizziness and lightheadedness that occurred at work early today. No falls or trauma. Patient did have a blood glucose of 93 at the time. He is not a diabetic and takes no diabetic medications. He denied chest pain or SOB at the time. Location: generalized Quality: dizziness, lightheadedness Radiation: none Severity: moderate Duration: 2-3 days Timing: intermittent Modifying factors/associated signs and symptoms: no chest pain, or SOB Timing/Duration: yesterday Severity: mild Associated Symptoms: nausea, No vomiting Allergies/Adverse Reactions: Penicillins Allergy (Severe, Verified 08/27/19 09:06) Difficulty Breathing Home Medications: Quetiapine Fumarate [Seroquel Xr] 150 mg PO HS 03/06/16 [History] Paroxetine HCl [Paxil] 40 mg PO DAILY 12/31/16 [History] Trazodone HCl 150 mg PO HS 12/31/16 [History] Gabapentin 300 mg PO QID 07/03/17 [History] Methocarbamol [Robaxin-750] 750 mg PO HS 01/05/18 [History] Ranitidine HCl [Zantac] 150 mg PO DAILY 03/21/18 [History] Hydrocodone/Acetaminophen [Melissa 10-325 Tablet] 1 each PO 5XD 08/27/19 [History] Hx Tetanus, Diphtheria Vaccination/Date Given: Yes Hx Influenza Vaccination/Date Given: Yes Hx Pneumococcal Vaccination/Date Given: No - Review of Systems Constitutional: No Fever, No Chills Eyes: No Symptoms Ears, Nose, & Throat: No Symptoms Respiratory: No Cough, No Dyspnea Cardiac: No Chest Pain, No Edema, No Syncope Abdominal/Gastrointestinal: No Abdominal Pain, No Nausea, No Vomiting, No Diarrhea Genitourinary Symptoms: No Dysuria Musculoskeletal: No Back Pain, No Neck Pain Skin: No Rash Neurological: No Dizziness, No Focal Weakness, No Sensory Changes Psychological: No Symptoms Endocrine: No Symptoms Immunological/Allergic: Pollen Allergy All Other Systems: Reviewed and Negative (Lightheaded and dizzy) - Past Medical History Pertinent Past Medical History: Yes Neurological History: No Pertinent History ENT History: No Pertinent History Cardiac History: No Pertinent History Respiratory History: No Pertinent History Endocrine Medical History: [place]'s Disease Musculoskeletal History: Degenerative Disk Disease Psycho-Social History: Anxiety, Depression Other Medical History: History of DDD along spine; hypoglycemia - Past Surgical History Past Surgical History: Yes Other Surgical History: T&A, TEETH EXTRACTION - Social History Smoking Status: Current every day smoker How long have you smoked: 14 Exposure to second hand smoke: Yes Drug Use: none Patient Lives Alone: No - Nursing Vital Signs Nursing Vital Signs: Initial Vital Signs Temperature 97.6 F 08/27/19 09:01 Pulse Rate 77 08/27/19 09:01 Respiratory Rate 16 08/27/19 09:01 Blood Pressure 126/77 08/27/19 09:01 O2 Sat by Pulse Oximetry 95 08/27/19 09:01 Pain Scale Pain Intensity 0 - Physical Exam General Appearance: no apparent distress, alert Eye Exam: PERRL/EOMI, eyes nml inspection Ears, Nose, Throat Exam: normal ENT inspection, TMs normal, pharynx normal, moist mucous membranes Neck Exam: normal inspection, non-tender, supple, full range of motion Respiratory Exam: normal breath sounds, lungs clear, No respiratory distress Cardiovascular Exam: regular rate/rhythm, normal heart sounds, normal peripheral pulses Gastrointestinal/Abdomen Exam: soft, normal bowel sounds, No tenderness, No mass Back Exam: normal inspection, normal range of motion, No CVA tenderness, No vertebral tenderness Extremity Exam: normal inspection, normal range of motion, pelvis stable Neurologic Exam: alert, oriented x 3, cooperative, normal mood/affect, nml cerebellar function, nml station & gait, sensation nml, No motor deficits Skin Exam: normal color, warm, dry, No rash Lymphatic Exam: No adenopathy SpO2: 95 Comments: Motor: There is no pronator drift of out-stretched arms. Muscle bulk and tone are normal. Strength is full bilaterally. Reflexes: Reflexes are 2+ and symmetric at the biceps, triceps, knees, and ankles. Plantar responses are flexor. Sensory: Light touch sense are intact in bilateral upper and lower extremities. There is no sign of neglect. Coordination: Rapid alternating movements are intact. There is no dysmetria on [id number] and [id number]. There are no abnormal or extraneous movements. Romberg is absent. Gait/Stance: Posture is normal. Gait is steady with normal steps, base, arm swing, and turning. Heel and toe walking are normal. Tandem gait is normal. No obvious deformity, sensation intact, 2+ capillary refill, 2 point tactile discrimination intact. 5 out of 5 strength. Full range of motion without pain. Compartments are soft, nontender. Overlying skin shows no tenting, bruising, ecchymosis. 08/27/19 09:40 Ordered Tests: Active Orders 24 hr Category Date Time Status Sole Conditioner STAT Care 08/27/19 09:15 Active EKG-ER Only STAT Care 08/27/19 09:14 Active CHEST 2 VIEWS (PA AND LAT) Stat Exams 08/27/19 09:14 Completed CBC W DIFF Stat Lab 08/27/19 09:41 Completed CMP Stat Lab 08/27/19 09:41 Completed LIPASE Stat Lab 08/27/19 09:41 Completed TROPONIN Q3H Lab 08/27/19 09:41 Completed TROPONIN Q3H Lab 08/27/19 12:15 Ordered TROPONIN Q3H Lab 08/27/19 15:15 Ordered TROPONIN Q3H Lab 08/27/19 18:15 Ordered TROPONIN Q3H Lab 08/27/19 21:15 Ordered UA W/RFX UR CULTURE Stat Lab 08/27/19 09:41 Completed Medication Summary Discontinued Medications Generic Name Dose Route Start Last Admin Trade Name Norah PRN Reason Stop Dose Admin Aspirin 324 mg 08/27/19 09:14 08/27/19 09:45 Baby Aspirin 81 Mg Chew PO 08/27/19 09:15 324 mg STAT ONE Administration Aspirin Confirm 08/27/19 09:44 Baby Aspirin 81 Mg Chew Administered 08/27/19 09:45 Dose 324 mg .ROUTE .STK-MED ONE Sodium Chloride 1,000 mls @ 999 mls/hr 08/27/19 09:14 08/27/19 09:46 Sodium Chloride 0.9% 1000 Ml IV 08/27/19 10:14 999 mls/hr .Q1H1M STA Administration Sodium Chloride Confirm 08/27/19 09:44 Sodium Chloride 0.9% 1000 Ml Administered 08/27/19 09:45 Dose 1,000 mls @ ud .ROUTE .STK-MED ONE Ondansetron HCl 8 mg 08/27/19 09:16 08/27/19 09:46 Zofran 4 Mg/2 Ml Vial IV 08/27/19 09:17 8 mg STAT ONE Administration Ondansetron HCl Confirm 08/27/19 09:44 Zofran 4 Mg/2 Ml Vial Administered 08/27/19 09:45 Dose 4 mg .ROUTE .STK-MED ONE Ondansetron HCl Confirm 08/27/19 09:47 Zofran 4 Mg/2 Ml Vial Administered 08/27/19 09:48 Dose 4 mg .ROUTE .STK-MED ONE Lab/Rad Data: Laboratory Result Diagrams 08/27/19 09:41 08/27/19 09:41 Laboratory Results 08/27/19 08/27/19 08/27/19 Range/Units 09:41 09:41 09:41 WBC (4.0-10.5) K/mm3 RBC (4.1-5.6) M/mm3 Hgb (12.5-18.0) gm/dl Hct (42-50) % MCV (78-100) fl MCH (26-32) pg MCHC (32-36) g/dl RDW (11.5-14.0) % Plt Count (150-450) K/mm3 MPV (7.5-11.0) fl Gran % (36.0-66.0) % Eos # (Auto) (0-0.5) Absolute Lymphs (auto) (1.0-4.6) Absolute Monos (auto) (0.0-1.3) Lymphocytes % (24.0-44.0) % Monocytes % (0.0-12.0) % Eosinophils % (0.00-5.0) % Basophils % (0.0-0.4) % Absolute Granulocytes (1.4-6.9) Basophils # (0-0.4) Sodium 140 (137-145) mmol/L Potassium 3.6 (3.5-5.1) mmol/L Chloride 107 (98-107) mmol/L Carbon Dioxide 27 (22-30) mmol/L Anion Gap 9.4 (5-15) MEQ/L BUN 7 L (9-20) mg/dL Creatinine 0.96 (0.66-1.25) mg/dL Estimated GFR > 60.0 ML/MIN Glucose 91 (74-106) mg/dL Calcium 8.9 (8.4-10.2) mg/dL Total Bilirubin 0.20 (0.2-1.3) mg/dL AST 24 (17-59) U/L ALT 23 (0-50) U/L Alkaline Phosphatase 43 (38-126) U/L Troponin I < 0.012 (0.000-0.034) ng/mL Serum Total Protein 6.7 (6.3-8.2) g/dL Albumin 3.8 (3.5-5.0) g/dL Lipase 98 (23-300) U/L Urine Color YELLOW (YELLOW) Urine Appearance CLEAR (CLEAR) Urine pH 5.0 (5-6) Ur Specific [place] 1.011 (1.005-1.025) Urine Protein NEGATIVE (Negative) Urine Ketones NEGATIVE (NEGATIVE) Urine Blood NEGATIVE (0-5) Manjit/ul Urine Nitrite NEGATIVE (NEGATIVE) Urine Bilirubin NEGATIVE (NEGATIVE) Urine Urobilinogen NEGATIVE (0-1) mg/dL Ur Leukocyte Esterase NEGATIVE (NEGATIVE) Urine WBC (Auto) 0-2 (0-5) /HPF Urine RBC (Auto) 0-2 (0-2) /HPF U Epithel Cells (Auto) RARE (FEW) /HPF Urine Bacteria (Auto) RARE (NEGATIVE) /HPF Urine Mucus (Auto) SLIGHT (NEGATIVE) /HPF Urine Culture Reflexed NO (NO) Urine Glucose NEGATIVE (NEGATIVE) mg/dL 08/27/19 Range/Units 09:41 WBC 6.5 (4.0-10.5) K/mm3 RBC 4.56 (4.1-5.6) M/mm3 Hgb 14.3 (12.5-18.0) gm/dl Hct 42.3 (42-50) % MCV 92.8 (78-100) fl MCH 31.4 (26-32) pg MCHC 33.8 (32-36) g/dl RDW 14.6 H (11.5-14.0) % Plt Count 203 (150-450) K/mm3 MPV 10.0 (7.5-11.0) fl Gran % 53.4 (36.0-66.0) % Eos # (Auto) 0.47 (0-0.5) Absolute Lymphs (auto) 1.81 (1.0-4.6) Absolute Monos (auto) 0.75 (0.0-1.3) Lymphocytes % 27.7 (24.0-44.0) % Monocytes % 11.5 (0.0-12.0) % Eosinophils % 7.2 H (0.00-5.0) % Basophils % 0.2 (0.0-0.4) % Absolute Granulocytes 3.49 (1.4-6.9) Basophils # 0.01 (0-0.4) Sodium (137-145) mmol/L Potassium (3.5-5.1) mmol/L Chloride (98-107) mmol/L Carbon Dioxide (22-30) mmol/L Anion Gap (5-15) MEQ/L BUN (9-20) mg/dL Creatinine (0.66-1.25) mg/dL Estimated GFR ML/MIN Glucose (74-106) mg/dL Calcium (8.4-10.2) mg/dL Total Bilirubin (0.2-1.3) mg/dL AST (17-59) U/L ALT (0-50) U/L Alkaline Phosphatase (38-126) U/L Troponin I (0.000-0.034) ng/mL Serum Total Protein (6.3-8.2) g/dL Albumin (3.5-5.0) g/dL Lipase (23-300) U/L Urine Color (YELLOW) Urine Appearance (CLEAR) Urine pH (5-6) Ur Specific [place] (1.005-1.025) Urine Protein (Negative) Urine Ketones (NEGATIVE) Urine Blood (0-5) Manjit/ul Urine Nitrite (NEGATIVE) Urine Bilirubin (NEGATIVE) Urine Urobilinogen (0-1) mg/dL Ur Leukocyte Esterase (NEGATIVE) Urine WBC (Auto) (0-5) /HPF Urine RBC (Auto) (0-2) /HPF U Epithel Cells (Auto) (FEW) /HPF Urine Bacteria (Auto) (NEGATIVE) /HPF Urine Mucus (Auto) (NEGATIVE) /HPF Urine Culture Reflexed (NO) Urine Glucose (NEGATIVE) mg/dL - Progress Progress: improved Progress Note: 08/27/19 09:41 - We'll obtain basic labs, fluids, EKG, troponin, chest x-ray - I feel comfortable with one time negative troponin given symptoms have improved and started greater then 6 hours ago. - EKG shows no ST changes - my read. See full read below. - O2 saturations consistently greater than 95%. - CXR shows no pneumonia, pneumothorax - my read - no other obvious lab abnormalities 08/27/19 10:40 Patient feels improved will follow up with PCP for reexam in the next 24-48 hours Counseled pt/family regarding: lab results, diagnosis, need for follow-up - Departure Departure Disposition: Home Clinical Impression: Lightheadedness Condition: Stable Critical Care Time: No Referrals: URIEL TOUSSAINT [Primary Care Provider] - Instructions: Dizziness, Nonvertigo, (DC)
[2019-08-27] MEDS ORDERED: BABY ASPIRIN 81 MG CHEW ONE (09:44)
[2019-08-27] MEDS ORDERED: Sodium Chloride 0.9% 1000 ML 1,000 ML ONE (09:44)
[2019-08-27] MEDS ORDERED: Zofran 4 MG/2 ML VIAL ONE ×2 (09:44→09:47)
[2019-08-27 09:46] LABS: Absolute Neutrophil Ct (ANC) 3.49 (1.4-6.9); BASOPHIL % 0.2 % (0.0-0.4); Basophil (Absolute #) 0.01 (0-0.4); Eosinophil % 7.2 % (0.00-5.0); Eosinophil (Absolute #) 0.47 (0-0.5); Hematocrit 42.3 % (42-50); Hemoglobin 14.3 gm/dl (12.5-18.0); Lymphocyte (Absolute #) 1.81 (1.0-4.6); Lymphocytes % 27.7 % (24.0-44.0); Mean Cell Volume 92.8 fl (78-100); Mean Corpuscular Hemoglobin 31.4 pg (26-32); Mean Corpuscular Hgb Concent. 33.8 g/dl (32-36); Monocyte (Absolute #) 0.75 (0.0-1.3); Monocytes % 11.5 % (0.0-12.0); Neutrophil % 53.4 % (36.0-66.0); Platelet Count 203 K/mm3 (150-450); Red Blood Count 4.56 M/mm3 (4.1-5.6); Red Cell Distribution Width 14.6 % (11.5-14.0); White Blood Count 6.5 K/mm3 (4.0-10.5)
[2019-08-27 09:51] LABS: Appearance CLEAR (CLEAR); Bilirubin NEGATIVE (NEGATIVE); Blood NEGATIVE Ery/ul (0-5); Glucose NEGATIVE (NEGATIVE); Ketones NEGATIVE (NEGATIVE); Leukocyte Esterase NEGATIVE (NEGATIVE); Mucus SLIGHT /HPF (NEGATIVE); Nitrite NEGATIVE (NEGATIVE); Protein,Urine Dip NEGATIVE (Negative); Specific Gravity 1.011 (1.005-1.025); Urobilinogen NEGATIVE mg/dL (0-1)
[2019-08-27 09:54] LABS: ALBUMIN 3.8 g/dL (3.5-5.0); ALKALINE PHOSPHATASE 43 U/L (38-126); ANION GAP 9.4 MEQ/L (5-15); BLOOD UREA NITROGEN 7 mg/dL (9-20); Bacteria RARE /HPF (NEGATIVE); CHLORIDE 107 mmol/L (98-107); Calcium 8.9 mg/dL (8.4-10.2); Carbon Dioxide 27 mmol/L (22-30); Creatinine 1 0.96 mg/dL (0.66-1.25); Epithelial Cells RARE /HPF (FEW); Glucose 91 mg/dL (74-106); LIPASE 98 U/L (23-300); Potassium 3.6 mmol/L (3.5-5.1); RBC 0-2 /HPF (0-2); SGOT/AST 24 U/L (17-59); SGPT/ALT 23 U/L (0-50); SODIUM 140 mmol/L (137-145); Total Protein 6.7 g/dL (6.3-8.2); WBC 0-2 /HPF (0-5)
--- NOTE | 2019-08-27 09:59 | XRAY ---
Indication: Dizziness. Pneumonia. Comparison: March 28, 2019. PA/lateral chest again demonstrates normal heart and lungs. Bony thorax intact.
[2019-08-27 10:24] VITALS: BP 125/56; PULSE 73
[2019-08-27 10:41] VITALS: O2SAT 95
== END 2019-08-27 10:31 | disposition home or self-care (01) ==
LOC: ED 08:54
DX: R42 Dizziness and giddiness (principal)
CPT/HCPCS: 36000; 36415; 71046; 80053; 81001; 83690; 84484; 85025; 93005; 93041; 96374; 99284; J2405; A9270-GY

== ENCOUNTER 2019-09-07 07:18 | Emergency (ER) | payer OTHER ==
--- NOTE | 2019-09-07 07:21 | ERPHSYRPT ---
- History of Present Illness Time Seen by Provider: 09/07/19 07:21 Source: patient Exam Limitations: no limitations Physician History: 33 y/o white male presents with coughing, runny nose, nasal congestion for 3 days. children with viral illness. pt with sore throat. no cp, no abd pain, no n /v/d Timing/Duration: day(s) (3) Cough Quality/Degree: moderate, dry cough Possible Cause: no prior episodes Modifying Factors: Improves With: coughing Associated Symptoms: cough, nasal congestion, nasal drainage, sore throat Allergies/Adverse Reactions: Penicillins Allergy (Severe, Verified 09/07/19 07:27) Difficulty Breathing Home Medications: Quetiapine Fumarate [Seroquel Xr] 150 mg PO HS 03/06/16 [History] Paroxetine HCl [Paxil] 40 mg PO DAILY 12/31/16 [History] Trazodone HCl 150 mg PO HS 12/31/16 [History] Gabapentin 300 mg PO QID 07/03/17 [History] Methocarbamol [Robaxin-750] 750 mg PO HS 01/05/18 [History] Ranitidine HCl [Zantac] 150 mg PO DAILY 03/21/18 [History] Hx Tetanus, Diphtheria Vaccination/Date Given: Yes Hx Influenza Vaccination/Date Given: Yes Hx Pneumococcal Vaccination/Date Given: No - Review of Systems Constitutional: No Symptoms Eyes: No Symptoms Ears, Nose, & Throat: Nose Congestion, Nose Discharge, Throat Pain Respiratory: Cough Cardiac: No Symptoms Abdominal/Gastrointestinal: No Symptoms Genitourinary Symptoms: No Symptoms Musculoskeletal: No Symptoms Skin: No Symptoms Neurological: No Symptoms Psychological: No Symptoms Endocrine: No Symptoms Hematologic/Lymphatic: No Symptoms Immunological/Allergic: No Symptoms All Other Systems: Reviewed and Negative - Past Medical History Pertinent Past Medical History: Yes Neurological History: No Pertinent History ENT History: No Pertinent History Cardiac History: No Pertinent History Respiratory History: No Pertinent History Endocrine Medical History: [place]'s Disease Musculoskeletal History: Degenerative Disk Disease Psycho-Social History: Anxiety, Depression Other Medical History: History of DDD along spine; hypoglycemia - Past Surgical History Past Surgical History: Yes Other Surgical History: T&A, TEETH EXTRACTION - Social History Smoking Status: Current every day smoker How long have you smoked: 14 Exposure to second hand smoke: Yes Drug Use: none Patient Lives Alone: No - Nursing Vital Signs Nursing Vital Signs: Initial Vital Signs Temperature 97.8 F 09/07/19 07:22 Pulse Rate 86 09/07/19 07:22 Respiratory Rate 18 09/07/19 07:22 Blood Pressure 119/90 09/07/19 07:22 O2 Sat by Pulse Oximetry 96 09/07/19 07:22 Pain Scale Pain Intensity 6 - Physical Exam General Appearance: no apparent distress, alert, anxiety Eye Exam: PERRL/EOMI, eyes nml inspection Ears, Nose, Throat Exam: normal ENT inspection, moist mucous membranes Neck Exam: normal inspection, non-tender, supple, full range of motion Respiratory Exam: normal breath sounds, lungs clear, airway intact, No chest tenderness, No respiratory distress Cardiovascular Exam: regular rate/rhythm, normal heart sounds, normal peripheral pulses Gastrointestinal/Abdomen Exam: soft, normal bowel sounds, No tenderness Rectal Exam: not done Back Exam: normal inspection, normal range of motion, No CVA tenderness, No vertebral tenderness Extremity Exam: normal inspection, normal range of motion, pelvis stable Neurologic Exam: alert, oriented x 3, cooperative, sharepoint application architect II-XII nml as tested Skin Exam: normal color, warm, dry Lymphatic Exam: No adenopathy SpO2 Interpretation: normal O2 Delivery: Room Air - Course Nursing assessment & vital signs reviewed: Yes - Progress Progress: unchanged Air Movement: good Progress Note: 09/07/19 07:48 i offered pt cxr, lab work. however, pt declines. i did tell pt i would tx for bronchitis and cover both bacterial and viral causes. Blood Culture(s) Obtained: No Antibiotics given: No Counseled pt/family regarding: diagnosis, need for follow-up - Departure Departure Disposition: Home Clinical Impression: Bronchitis Condition: Stable Critical Care Time: No Referrals: URIEL TOUSSAINT [Primary Care Provider] - Additional Instructions: drink plenty of fluids. follow up with primary doctor for further management. Forms: Work/School Release Form Prescriptions: Azithromycin 250 mg [Zithromax 250 MG TABLET] 250 mg PO ZPACK #6 tablet Hydrocodone Bit/Acetaminophen [Hydrocodone-Acetaminophen Soln] 10 ml PO Q6H # 120 ml Prednisone 10 mg [Deltasone 10 mg] 10 mg PO TID #12 tablet
[2019-09-07 07:27] VITALS: BP 119/90; PULSE 86; O2SAT 96
[2019-09-07] MEDS ORDERED: PROVENTIL 2.5 MG/3 ML NEB IH ONE (08:02)
== END 2019-09-07 07:55 | disposition home or self-care (01) ==
LOC: ED 07:18
DX: J40 Bronchitis, not specified as acute or chronic (principal); Z79.899 Other long term (current) drug therapy
CPT/HCPCS: 99283

== ENCOUNTER 2019-10-17 12:52 | Emergency (ER) | payer OTHER ==
[2019-10-17] MEDS ORDERED: Rocephin 1000 MG INJ IM ONE (13:16)
[2019-10-17] MEDS ORDERED: XYLOCAINE 1% HCL 20 ML MDV ONE (13:21)
[2019-10-17] MEDS ORDERED: Rocephin 1000 MG INJ ONE (13:21)
[2019-10-17 13:22] VITALS: BP 138/87; PULSE 94; O2SAT 97
--- NOTE | 2019-10-17 13:22 | ERPHSYRPT ---
- History of Present Illness Time Seen by Provider: 10/17/19 13:19 Source: patient Exam Limitations: no limitations Physician History: c/o swelling on right medial thigh started 5 days ago. no fever, Timing/Duration: day(s) (4 days) Severity: mild Associated Symptoms: denies symptoms Allergies/Adverse Reactions: Penicillins Allergy (Severe, Verified 10/17/19 13:15) Difficulty Breathing Home Medications: Quetiapine Fumarate [Seroquel Xr] 150 mg PO HS 03/06/16 [History] Paroxetine HCl [Paxil] 40 mg PO DAILY 12/31/16 [History] Trazodone HCl 150 mg PO HS 12/31/16 [History] Gabapentin 300 mg PO QID 07/03/17 [History] Methocarbamol [Robaxin-750] 750 mg PO HS 01/05/18 [History] Ranitidine HCl [Zantac] 150 mg PO DAILY 03/21/18 [History] Hx Tetanus, Diphtheria Vaccination/Date Given: Yes Hx Influenza Vaccination/Date Given: Yes Hx Pneumococcal Vaccination/Date Given: No - Review of Systems Constitutional: No Fever, No Chills Eyes: No Symptoms Ears, Nose, & Throat: No Symptoms Respiratory: No Cough, No Dyspnea Cardiac: No Chest Pain, No Edema, No Syncope Abdominal/Gastrointestinal: No Abdominal Pain, No Nausea, No Vomiting, No Diarrhea Genitourinary Symptoms: No Dysuria Musculoskeletal: No Back Pain, No Neck Pain Skin: Cellulitis (right side medial thigh), No Rash Neurological: No Dizziness, No Focal Weakness, No Sensory Changes Psychological: No Symptoms Endocrine: No Symptoms All Other Systems: Reviewed and Negative - Past Medical History Pertinent Past Medical History: Yes Neurological History: No Pertinent History ENT History: No Pertinent History Cardiac History: No Pertinent History Respiratory History: No Pertinent History Endocrine Medical History: [place]'s Disease Musculoskeletal History: Degenerative Disk Disease Psycho-Social History: Anxiety, Depression Other Medical History: History of DDD along spine; hypoglycemia - Past Surgical History Past Surgical History: Yes Other Surgical History: T&A, TEETH EXTRACTION - Social History Smoking Status: Current every day smoker How long have you smoked: 14 Exposure to second hand smoke: Yes Drug Use: none Patient Lives Alone: No - Physical Exam General Appearance: no apparent distress, alert Eye Exam: PERRL/EOMI, eyes nml inspection Ears, Nose, Throat Exam: normal ENT inspection, TMs normal, pharynx normal, moist mucous membranes Neck Exam: normal inspection, non-tender, supple, full range of motion Respiratory Exam: normal breath sounds, lungs clear, No respiratory distress Cardiovascular Exam: regular rate/rhythm, normal heart sounds, normal peripheral pulses Gastrointestinal/Abdomen Exam: soft, normal bowel sounds, No tenderness, No mass Back Exam: normal inspection, normal range of motion, No CVA tenderness, No vertebral tenderness Extremity Exam: normal inspection, normal range of motion, pelvis stable Neurologic Exam: alert, oriented x 3, cooperative, normal mood/affect, nml cerebellar function, nml station & gait, sensation nml, No motor deficits Skin Exam: normal color, warm, dry, No rash Lymphatic Exam: No adenopathy - Course Nursing assessment & vital signs reviewed: Yes Ordered Tests: Medication Summary Discontinued Medications Generic Name Dose Route Start Last Admin Trade Name Freq PRN Reason Stop Dose Admin Ceftriaxone Sodium 1,000 mg 10/17/19 13:16 Rocephin 1000 Mg Inj IM 10/17/19 13:17 STAT ONE - Progress Progress: unchanged Counseled pt/family regarding: diagnosis, need for follow-up - Departure Departure Disposition: Home Clinical Impression: Abscess of right thigh Condition: Stable Critical Care Time: No Referrals: URIEL TOUSSAINT [Primary Care Provider] - Instructions: Wound Infection Additional Instructions: Discharge/Care Plan AYKOV DALEY was seen on 10/17/19 in the Emergency Room. The patient was counseled regarding Diagnosis,Lab results, Imaging studies, need for follow up and when to return to the Emergency Room. Prescriptions given: Discharge Note I have spoken with the patient and/or caregivers. I have explained the patient' s condition, diagnosis and treatment plan based on the information available to me at this time. I have answered the patient's and/or caregiver's questions and addressed any concerns. The patient and/or caregivers have as good understanding of the patient's diagnosis, condition and treatment plan as can be expected at this point. The vital signs have been stable. The patient's condition is stable and appropriate for discharge from the emergency department. The patient will pursue further outpatient evaluation with the primary care physician or other designated or consulting physician as outlined in the discharge instructions. The patient and/or caregivers are agreeable to this plan of care and follow-up instructions have been explained in detail. The patient and/or caregivers have received these instruction. The patient/and or caregivers are aware that any significant change in condition or worsening of symptoms should prompt an immediate return to this or the closest emergency department or call 911. Prescriptions: Doxycycline Hyclate 100 mg PO BID #20 tablet
== END 2019-10-17 13:47 | disposition home or self-care (01) ==
LOC: ED 12:52
DX: L02.415 Cutaneous abscess of right lower limb (principal); Z79.899 Other long term (current) drug therapy
CPT/HCPCS: 96372; 99283; J0696

== ENCOUNTER 2020-08-05 16:24 | Emergency (ER) | payer OTHER ==
[2020-08-05 16:36] VITALS: BP 132/77
[2020-08-05] MEDS ORDERED: DUONEB 0.5-3 MG/3 ml Neb IH ONE ×2 (16:38→16:56)
--- NOTE | 2020-08-05 16:44 | ERPHSYRPT ---
- History of Present Illness Time Seen by Provider: 08/05/20 16:41 Source: patient Exam Limitations: no limitations Patient Subjective Stated Complaint: cough, body aches, SOB occasionally after coughing fits Triage Nursing Assessment: pt to ED c/o cough, SOB and body aches x 4 days. also reports feeling feverish but has not had temperature. denies known COVID exposure and wears masks while out and at work. not in resp distress on arrival, lungs clear and equal, heart sounds clear. Physician History: cough, body aches, SOB occasionally after coughing fits started today initial symptoms 4 days ago pt to ED c/o cough, SOB and body aches x 4 days. also reports feeling feverish but has not had temperature. denies known COVID exposure and wears masks while out and at work. Timing/Duration: day(s) Cough Quality/Degree: dry cough Associated Symptoms: cough, shortness of breath, sore throat, wheezing Allergies/Adverse Reactions: Penicillins Allergy (Severe, Verified 08/05/20 16:52) Difficulty Breathing Home Medications: Quetiapine Fumarate [Seroquel Xr] 150 mg PO HS 03/06/16 [History] Paroxetine HCl [Paxil] 40 mg PO DAILY 12/31/16 [History] Trazodone HCl 150 mg PO HS 12/31/16 [History] Gabapentin 300 mg PO QID 07/03/17 [History] Methocarbamol [Robaxin-750] 750 mg PO HS 01/05/18 [History] Ranitidine HCl [Zantac] 150 mg PO DAILY 03/21/18 [History] Hx Tetanus, Diphtheria Vaccination/Date Given: Yes Hx Influenza Vaccination/Date Given: Yes Hx Pneumococcal Vaccination/Date Given: No Immunizations Up to Date: Yes Travel Risk - International Travel Have you traveled outside of the country in past 3 weeks: No - Coronavirus Screening Are you exhibiting any of the following symptoms?: Yes Symptoms: Cough: New Onset, Shortness of Breath, Headaches/Body Aches/Fatigue Close contact with a COVID-19 positive Pt in past 14-21 Days: No - Review of Systems Constitutional: Malaise, No Fever, No Chills Eyes: No Symptoms Ears, Nose, & Throat: No Symptoms Respiratory: Cough, Dyspnea Cardiac: No Chest Pain, No Edema, No Syncope Abdominal/Gastrointestinal: No Abdominal Pain, No Nausea, No Vomiting, No Diarrhea Genitourinary Symptoms: No Dysuria Musculoskeletal: No Back Pain, No Neck Pain Skin: No Rash Neurological: No Dizziness, No Focal Weakness, No Sensory Changes Psychological: No Symptoms Endocrine: No Symptoms All Other Systems: Reviewed and Negative - Past Medical History Pertinent Past Medical History: Yes Neurological History: No Pertinent History ENT History: No Pertinent History Cardiac History: No Pertinent History Respiratory History: No Pertinent History Endocrine Medical History: Bullitt's Disease Musculoskeletal History: Degenerative Disk Disease Psycho-Social History: Anxiety, Depression Other Medical History: History of DDD along spine; hypoglycemia - Past Surgical History Past Surgical History: Yes Other Surgical History: T&A, ALL TEETH EXTRACTED - 2019 - Social History Smoking Status: Former smoker How long have you smoked: 14 Exposure to second hand smoke: Yes Drug Use: none Patient Lives Alone: No - Nursing Vital Signs Nursing Vital Signs: Initial Vital Signs Temperature 97.5 F 08/05/20 16:30 Pulse Rate 86 08/05/20 16:30 Respiratory Rate 18 08/05/20 16:30 Blood Pressure 132/77 08/05/20 16:30 O2 Sat by Pulse Oximetry 98 08/05/20 16:30 Pain Scale Pain Intensity 0 - Physical Exam General Appearance: no apparent distress, alert Eye Exam: PERRL/EOMI, eyes nml inspection Ears, Nose, Throat Exam: normal ENT inspection, TMs normal, pharynx normal, moist mucous membranes Neck Exam: normal inspection, non-tender, supple, full range of motion Respiratory Exam: normal breath sounds, lungs clear, No respiratory distress Cardiovascular Exam: regular rate/rhythm, normal heart sounds Gastrointestinal/Abdomen Exam: soft, No tenderness Back Exam: normal inspection, No CVA tenderness, No vertebral tenderness Extremity Exam: normal inspection, normal range of motion Neurologic Exam: alert, oriented x 3, cooperative, normal mood/affect, sensation nml, No motor deficits Skin Exam: normal color, warm, dry, No rash Lymphatic Exam: No adenopathy SpO2: 97 - Course Nursing assessment & vital signs reviewed: Yes - Radiology Exams Chest X-ray Interpretation: Reviewed by me, Negative, No Pneumonia Ordered Tests: Active Orders 24 hr Category Date Time Status [facility]SD[facility] COVID Approval STAT Care 08/05/20 16:39 Completed Isolation, Initiate & Maintain STAT Care 08/05/20 16:39 Active CHEST 1 VIEW (PORTABLE) Stat Exams 08/05/20 16:41 Taken ARTERIAL BLOOD GASES Stat Lab 08/05/20 16:41 Completed CBC Stat Lab 08/05/20 16:38 Completed CMP Stat Lab 08/05/20 16:38 Completed INFLUENZA A+B CARMEN Stat Lab 08/05/20 16:41 Completed Lactic Acid Stat Lab 08/05/20 17:19 Completed Respiratory Therapy Assessment DAILY RT 08/05/20 17:28 Completed Medication Summary Generic Name Dose Route Start Last Admin Trade Name Freq PRN Reason Stop Dose Admin Sodium Chloride 1,000 mls @ 50 mls/hr 08/05/20 16:45 Sodium Chloride 0.9% 1000 Ml IV 09/04/20 16:44 .Q20H JOSE F Discontinued Medications Generic Name Dose Route Start Last Admin Trade Name Freq PRN Reason Stop Dose Admin Albuterol/Ipratropium 3 ml 08/05/20 16:38 Duoneb 0.5-3 Mg/3 Ml Neb IH 08/05/20 16:39 STAT ONE Albuterol/Ipratropium Confirm 08/05/20 16:56 Duoneb 0.5-3 Mg/3 Ml Neb Administered 08/05/20 16:57 Dose 3 ml IH .STK-MED ONE Lab/Rad Data: Laboratory Result Diagrams 08/05/20 16:38 08/05/20 16:38 Laboratory Results 08/05/20 08/05/20 08/05/20 Range/Units 17:19 16:41 16:41 WBC (4.0-10.5) K/mm3 RBC (4.1-5.6) M/mm3 Hgb (12.5-18.0) gm/dl Hct (42-50) % MCV (78-100) fl MCH (26-32) pg MCHC (32-36) g/dl RDW (11.5-14.0) % Plt Count (150-450) K/mm3 MPV (7.5-11.0) fl Puncture Site RIGHT BRACHIAL pCO2 31 L (35-45) mmHg pO2 107 H (75-100) mmHg Base Excess -0.2 (-2.0-2.0) O2 Saturation 95.7 (94-100) g/dF ABG pH 7.47 H (7.35-7.45) ABG HCO3 22.6 (22-28) ABG O2 Sat (Measured) 98.9 (95-100) % Neno Test NOT APPLICABLE A-a Gradient 4 a/A Ratio 0.96 Hemoglobin 15.3 Carboxyhemoglobin 2.0 (0.0-6.9) % THgb Methemoglobin 1.2 L (1.4-1.5) % Temperature 37.0 C POC O2 Flow Rate 21 % Sodium (137-145) mmol/L Potassium 4.1 (3.5-5.1) mmol/L Chloride (98-107) mmol/L Carbon Dioxide (22-30) mmol/L Anion Gap (5-15) MEQ/L BUN (9-20) mg/dL Creatinine (0.66-1.25) mg/dL Estimated GFR ML/MIN Glucose (74-106) mg/dL Lactic Acid 0.6 (0.4-2.0) Calcium (8.4-10.2) mg/dL Total Bilirubin (0.2-1.3) mg/dL AST (17-59) U/L ALT (0-50) U/L Alkaline Phosphatase (38-126) U/L Serum Total Protein (6.3-8.2) g/dL Albumin (3.5-5.0) g/dL Influenza Type A Ag NEGATIVE (NEGATIVE) Influenza Type B Ag NEGATIVE (NEGATIVE) 08/05/20 08/05/20 Range/Units 16:38 16:38 WBC 10.0 (4.0-10.5) K/mm3 RBC 4.85 (4.1-5.6) M/mm3 Hgb 14.9 (12.5-18.0) gm/dl Hct 43.7 (42-50) % MCV 90.1 (78-100) fl MCH 30.7 (26-32) pg MCHC 34.1 (32-36) g/dl RDW 13.8 (11.5-14.0) % Plt Count 287 (150-450) K/mm3 MPV 9.5 (7.5-11.0) fl Puncture Site pCO2 (35-45) mmHg pO2 (75-100) mmHg Base Excess (-2.0-2.0) O2 Saturation (94-100) g/dF ABG pH (7.35-7.45) ABG HCO3 (22-28) ABG O2 Sat (Measured) (95-100) % Neno Test A-a Gradient a/A Ratio Hemoglobin Carboxyhemoglobin (0.0-6.9) % THgb Methemoglobin (1.4-1.5) % Temperature C POC O2 Flow Rate % Sodium 138 (137-145) mmol/L Potassium 4.5 (3.5-5.1) mmol/L Chloride 104 (98-107) mmol/L Carbon Dioxide 28 (22-30) mmol/L Anion Gap 10.6 (5-15) MEQ/L BUN 13 (9-20) mg/dL Creatinine 0.87 (0.66-1.25) mg/dL Estimated GFR > 60.0 ML/MIN Glucose 100 (74-106) mg/dL Lactic Acid (0.4-2.0) Calcium 9.4 (8.4-10.2) mg/dL Total Bilirubin 0.50 (0.2-1.3) mg/dL AST 24 (17-59) U/L ALT 24 (0-50) U/L Alkaline Phosphatase 59 (38-126) U/L Serum Total Protein 7.5 (6.3-8.2) g/dL Albumin 4.4 (3.5-5.0) g/dL Influenza Type A Ag (NEGATIVE) Influenza Type B Ag (NEGATIVE) - Progress Progress: unchanged Counseled pt/family regarding: lab results, diagnosis, need for follow-up, rad results - Departure Departure Disposition: Home Clinical Impression: Acute viral syndrome, Exposure to COVID-19 virus Condition: Stable Critical Care Time: No Referrals: URIEL LORENZANA [Primary Care Provider] - Instructions: Cough, Adult (DC), Coronavirus Disease 2019 (COVID-19) (DC) Additional Instructions: THUYYAKOV JOHNSON was seen on 08/05/20 n the Emergency Room. At that time you were treated for an emergent condition, during your visit Laboratory, Radiology and/or other procedures may have been ordered. It is very important that you follow-up with your Primary Care Physician URIEL LORENZANA within the next 24-48 hours to review your Emergency Room visit and the final results of testing that was ordered. Some test results such as Urine Cultures, Blood Cultures, and other cultures if ordered will not be finalized for 24-48 hours. If you do not have a Primary Care Provider please call the medical records department at [phone] ext [phone] to obtain a copy of your results or you may sign into our patient portal to obtain these results by visiting us @ [email or web address] and completing the following steps: 1. Click on the Patient Portal link 2. Click the Patient Self Enrollment Link to complete the enrollment form and entering your 3. Once the enrollment form is completed you will receive an email with a tempor bill ID and password at the email address you provided. 4. Next choose a user name and password. Your user name must be at least 4 characters long and your password must be at least 4 characters long. 5. Choose a security question from the list and provide your answer to the question. If you already have signed into the Health Portal you may access your Health Care Information 25/02 by the following steps: 1. Login to our website @ [email or web address] 2. Enter your original user name and password. FAQS The [facility] Health Portal is an online tool that contains your Lab Results, Radiology Reports, Visit History, Discharge Instructions and Health Summary Lab and Radiology Results will not be available for 72 hours on the portal. The Portal is a secure site, passwords are encryted and URLs are re-written so they cannot be copied and pasted. You and authorized family members are the only ones who can access your Portal. Also there is a timeout feature that protects your information if you leave the Portal page open. If you have technical difficulty please use the Contact Us link on the page this will allow you to submit any questions you have regarding the Portal or you may contact the Medical Record Department at [phone]. Prescriptions: Benzonatate [Tessalon Perle] 100 mg PO QID #30 capsule Azithromycin [Zithromax] 250 mg PO UD 5 Days #6 tablet
[2020-08-05] MEDS ORDERED: Sodium Chloride 0.9% 1000 ML 1,000 ML IV SCH (16:45)
[2020-08-05 17:05] LABS: Hematocrit 43.7 % (42-50); Hemoglobin 14.9 gm/dl (12.5-18.0); Mean Cell Volume 90.1 fl (78-100); Mean Corpuscular Hemoglobin 30.7 pg (26-32); Mean Corpuscular Hgb Concent. 34.1 g/dl (32-36); Mean Platelet Volume 9.5 fl (7.5-11.0); Platelet Count 287 K/mm3 (150-450); Red Blood Count 4.85 M/mm3 (4.1-5.6); Red Cell Distribution Width 13.8 % (11.5-14.0)
[2020-08-05 17:14] LABS: A-aADO2 4; ABG HEMOGLOBIN 15.3; ABG POTASSIUM 4.1 (3.5-5.1); ABG SITE RIGHT BRACHIAL; ARTERIAL BLD GAS O2 SATURATION 98.9 % (95-100); ARTERIAL BLOOD GAS BASE EXCESS -0.2 (-2.0-2.0); ARTERIAL BLOOD GAS FIO2 21 %; ARTERIAL BLOOD GAS PCO2 31 mmHg (35-45); ARTERIAL BLOOD GAS PO2 107 mmHg (75-100); ARTERIAL BLOOD GAS pH 7.47 (7.35-7.45); HCO3- 22.6 (22-28); HGB O2 SAT 95.7 g/dF (94-100); Methhemoglobin 1.2 % (1.4-1.5); paO2 pAO1 0.96
[2020-08-05 17:17] LABS: ALBUMIN 4.4 g/dL (3.5-5.0); ALKALINE PHOSPHATASE 59 U/L (38-126); ANION GAP 10.6 MEQ/L (5-15); BLOOD UREA NITROGEN 13 mg/dL (9-20); CHLORIDE 104 mmol/L (98-107); Calcium 9.4 mg/dL (8.4-10.2); Carbon Dioxide 28 mmol/L (22-30); Creatinine 1 0.87 mg/dL (0.66-1.25); EST GLOMERULAR FILTRATION RATE > 60.0 ML/MIN; Glucose 100 mg/dL (74-106); Potassium 4.5 mmol/L (3.5-5.1); SGOT/AST 24 U/L (17-59); SGPT/ALT 24 U/L (0-50); SODIUM 138 mmol/L (137-145); Total Protein 7.5 g/dL (6.3-8.2)
[2020-08-05 17:23] LABS: INFLUENZA A NEGATIVE (NEGATIVE); INFLUENZA B NEGATIVE (NEGATIVE)
[2020-08-05 18:07] VITALS: PULSE 89; O2SAT 98
--- NOTE | 2020-08-05 18:14 | XRAY ---
Indication: Cough. Suspect Covid 19. Comparison: September 12, 2019. Portable chest again demonstrates normal heart, lungs, and bony thorax.
== END 2020-08-05 18:20 | disposition home or self-care (01) ==
LOC: ED 16:24
DX: R05 Cough (principal); R06.02 Shortness of breath; B34.9 Viral infection, unspecified; R51.9 Headache, unspecified; Z79.899 Other long term (current) drug therapy; Z20.822 Contact with and (suspected) exposure to COVID-19
CPT/HCPCS: 36415; 36600; 71045; 80053; 82375; 82803; 83605; 85027; 87400; 99284; U0003; A9270-GY

== ENCOUNTER 2020-11-23 16:23 | Emergency (ER) | payer OTHER ==
--- NOTE | 2020-11-23 17:44 | ERPHSYRPT ---
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 coughing up green sputum per patient. Triage Nursing Assessment: Pt lungs clear, equal, bilaterally. Respirations non-labored. Skin pink, warm, dry. Physician History: 34 years old male with history of asthma presented in the ER with chief complaint of sore throat, sinus congestion and cough productive of clear to yellow sputum starting almost 2 days ago when he was heavily exposed to dust at work. No fever chills or shortness of breath reported. Because of coughing having some headaches and generalized body aches. Does have history of tonsillectomy/adenoidectomy. No chest pain or palpitations. Spouse has similar symptoms for almost 1 week. Timing/Duration: day(s) (2), sudden, worse Cough Quality/Degree: moderate, dry cough, productive cough, sputum Possible Cause: allergen exposure Associated Symptoms: cough, headache, nasal congestion, sore throat, No fever, No chills, No chest pain/soreness, No earache, No facial pain, No lightheadedness, No shortness of breath Allergies/Adverse Reactions: Penicillins Allergy (Severe, Verified 08/05/20 16:52) Difficulty Breathing Home Medications: Quetiapine Fumarate [Seroquel Xr] 150 mg PO HS 03/06/16 [History] Paroxetine HCl [Paxil] 40 mg PO DAILY 12/31/16 [History] Trazodone HCl 150 mg PO HS 12/31/16 [History] Gabapentin 300 mg PO QID 07/03/17 [History] methocarbamoL [Robaxin-750] 750 mg PO HS 01/05/18 [History] Ranitidine HCl [Zantac] 150 mg PO DAILY 03/21/18 [History] Hx Tetanus, Diphtheria Vaccination/Date Given: Yes (2019) Hx Influenza Vaccination/Date Given: No Hx Pneumococcal Vaccination/Date Given: No Travel Risk - International Travel Have you traveled outside of the country in past 3 weeks: No - Coronavirus Screening Are you exhibiting any of the following symptoms?: Yes Symptoms: Cough: New Onset, Headaches/Body Aches/Fatigue Close contact with a COVID-19 positive Pt in past 14-21 Days: No - Vaccine Status Have you recieved a Covid-19 vaccination: No - Review of Systems Constitutional: No Symptoms Eyes: No Symptoms Ears, Nose, & Throat: Nose Congestion, Throat Pain, Throat Swelling, Painful Swallowing Respiratory: Cough, Wheezing Cardiac: No Symptoms Abdominal/Gastrointestinal: No Symptoms Genitourinary Symptoms: No Symptoms Musculoskeletal: Myalgias Skin: No Symptoms Neurological: Headache Psychological: No Symptoms Endocrine: No Symptoms Hematologic/Lymphatic: No Symptoms Immunological/Allergic: No Symptoms - Past Medical History Pertinent Past Medical History: Yes Neurological History: No Pertinent History ENT History: No Pertinent History Cardiac History: No Pertinent History Respiratory History: No Pertinent History, Bronchitis Endocrine Medical History: Prasanth's Disease Musculoskeletal History: Degenerative Disk Disease GI Medical History: GERD Psycho-Social History: Anxiety, Depression Other Medical History: History of DDD along spine; hypoglycemia Neuropathy - Past Surgical History Past Surgical History: Yes Other Surgical History: T&A, ALL TEETH EXTRACTED - 2019 - Social History Smoking Status: Current some day smoker How long have you smoked: 14 Exposure to second hand smoke: Yes Drug Use: none Patient Lives Alone: No - Nursing Vital Signs Nursing Vital Signs: Initial Vital Signs Temperature 98.1 F 11/23/20 17:24 Pulse Rate 98 H 11/23/20 17:24 Respiratory Rate 18 11/23/20 17:24 Blood Pressure 130/85 11/23/20 17:24 O2 Sat by Pulse Oximetry 97 11/23/20 17:24 Pain Scale Pain Intensity 0 - Physical Exam General Appearance: no apparent distress Eye Exam: PERRL/EOMI, post op pupil defect (L) Ears, Nose, Throat Exam: TMs normal, moist mucous membranes, pharyngeal erythema Neck Exam: normal inspection, non-tender, supple, full range of motion Respiratory Exam: normal breath sounds, lungs clear Cardiovascular Exam: regular rate/rhythm, normal heart sounds Back Exam: normal inspection, normal range of motion Extremity Exam: normal inspection, normal range of motion Neurologic Exam: alert Skin Exam: normal color SpO2 Interpretation: normal SpO2: 97 O2 Delivery: Room Air - Progress Progress: unchanged Air Movement: good Progress Note: 11/23/20 17:42 I believe patient has asthma exacerbation with bronchitis and sore throat. I have advised him to continue with albuterol inhaler and take steroid. Lung sounds bilateral clear to auscultation, patient is afebrile, not in distress at all. Do not think needs any work-up and is stable for discharge. Blood Culture(s) Obtained: No Antibiotics given: No Counseled pt/family regarding: diagnosis, need for follow-up - Departure Departure Disposition: Home Clinical Impression: URI with cough and congestion Condition: Stable Critical Care Time: No Referrals: URIEL LORENZANA [Primary Care Provider] - Follow Up with PCP/3 days Instructions: Cough, Adult (DC) Additional Instructions: Use inhaler as needed for cough and wheezing. Continue with steroids. Follow- up with primary care for reevaluation. Return to ER for any worsening. Prescriptions: Prednisone 20 mg [Deltasone 20 mg] 60 mg PO DAILY 5 Days #15 tablet
[2020-11-23 18:05] VITALS: BP 124/81; PULSE 88; O2SAT 98
== END 2020-11-23 18:14 | disposition home or self-care (01) ==
LOC: ED 16:23
DX: J06.9 Acute upper respiratory infection, unspecified (principal); R05 Cough; R09.89 Other specified symptoms and signs involving the circulatory and respiratory systems
CPT/HCPCS: 99283

== ENCOUNTER 2024-02-20 13:15 | Emergency (ER) | payer OTHER ==
[2024-02-20 13:45] VITALS: BP 133/86; PULSE 81; RESP 16; TEMP 97.8; O2SAT 98
[2024-02-20] MEDS ORDERED: MORPHINE SULFATE 4 MG INJ IV ONE (14:05)
[2024-02-20] MEDS ORDERED: Sodium Chloride 0.9% 1000 ML 1,000 ML IV STA (14:05)
[2024-02-20] MEDS ORDERED: Zofran 4 MG/2 ML VIAL IV ONE (14:05)
--- NOTE | 2024-02-20 14:12 | ERPHSYRPT ---
- History of Present Illness Time Seen by Provider: 02/20/24 13:35 Historian: patient Exam Limitations: no limitations Patient Subjective Stated Complaint: C/O diarrhea with intermittent abdominal pain since 02/18/24. Triage Nursing Assessment: Patient ambulated back to ER. He is alert and oriented. NO SOB. Skin tone normal. Abdominal pain is in the center of patient's abdomen at this time. Indicates that the pain is left sided at times radiating into his back. No current N/V. Physician History: 38 y/o male with no pertinent medical or surgical history presents to ED with c/o worsening RUQ abdominal pain onset 3 days ago. The pain is intermittent in nature and is exacerbated by eating. He has associated nausea and diarrhea onset 1 day ago with one episode of vomiting. Pt also notes an occasional shooting pain from his LLQ to his RUQ. Denies any confusion or dizziness. He tried Pepto Bismol which provided no relief. He works at an [employer] and notes that he was exposed to lead paint the day that the pain began. No other known complaints or concerns at this time. Timing/Duration: intermittent, worse Abdominal Pain Onset Location: RUQ Modifying Factors: Improves With: eating Associated Symptoms: diarrhea, nausea, vomiting Allergies/Adverse Reactions: Penicillins Allergy (Severe, Verified 02/20/24 13:33) Difficulty Breathing Hx Tetanus, Diphtheria Vaccination/Date Given: Yes (2019) Hx Influenza Vaccination/Date Given: No Hx Pneumococcal Vaccination/Date Given: No Immunizations Up to Date: Yes Travel Risk - International Travel Have you traveled outside of the country in past 3 weeks: No - Emerging Infectious Disease Are you exhibiting symptoms associated with any current EIDs: Yes Symptoms: Abdominal Pain, Diarrhea - Review of Systems Constitutional: Fatigue Eyes: No Symptoms Ears, Nose, & Throat: No Symptoms Respiratory: No Symptoms Cardiac: No Symptoms Abdominal/Gastrointestinal: Abdominal Pain, Nausea, Diarrhea Genitourinary Symptoms: No Symptoms Musculoskeletal: Myalgias Skin: No Symptoms Neurological: No Symptoms Psychological: No Symptoms Endocrine: No Symptoms Hematologic/Lymphatic: No Symptoms - Past Medical History Pertinent Past Medical History: Yes Neurological History: No Pertinent History ENT History: No Pertinent History Cardiac History: Hypertension Respiratory History: Bronchitis Endocrine Medical History: Prasanth's Disease Musculoskeletal History: Degenerative Disk Disease GI Medical History: GERD Psycho-Social History: Anxiety, Depression Other Medical History: History of DDD along spine; hypoglycemia, Neuropathy - Past Surgical History Past Surgical History: Yes Other Surgical History: ALL TEETH EXTRACTED - 2019 - Social History Smoking Status: Current some day smoker How long have you smoked: 20 years Exposure to second hand smoke: Yes Drug Use: none Patient Lives Alone: No - Social Determinants of Health Will the patient participate in the screening: Yes Do you worry about a steady place to live?: No Do you have any problems with any of the following?: No known problems In the past 12 months,have you had to go without utilities?: No Transportation Issues: No Has anyone in your support network made you feel unsafe?: No Have you or anyone in your house had to go without enough: No - Nursing Vital Signs Nursing Vital Signs: Initial Vital Signs Temperature 97.8 F 02/20/24 13:25 Pulse Rate 81 02/20/24 13:25 Respiratory Rate 16 02/20/24 13:25 Blood Pressure 133/86 02/20/24 13:25 O2 Sat by Pulse Oximetry 98 02/20/24 13:25 Pain Scale Pain Intensity 3 - Physical Exam General Appearance: no apparent distress, alert Eye Exam: PERRL/EOMI Ears, Nose, Throat Exam: normal ENT inspection Neck Exam: normal inspection, full range of motion Respiratory Exam: normal breath sounds, lungs clear Cardiovascular Exam: regular rate/rhythm, normal heart sounds Gastrointestinal/Abdomen Exam: soft, normal bowel sounds, tenderness (Mild epigastric/right upper quadrant and left lower quadrant tenderness) Back Exam: normal inspection, normal range of motion Extremity Exam: normal inspection, normal range of motion Neurologic Exam: alert, oriented x 3, cooperative Skin Exam: normal color, warm SpO2 Interpretation: normal SpO2: 98 O2 Delivery: Room Air Ordered Tests: Active Orders 24 hr Category Date Time Status IV Insertion STAT Care 02/20/24 14:05 Active NPO (ED) STAT Care 02/20/24 14:05 Active ABDOMEN AND PELVIS W/0 CONTRAS [CT] Stat Exams 02/20/24 14:22 Completed CBC W DIFF Stat Lab 02/20/24 15:30 Completed CMP Stat Lab 02/20/24 15:30 Completed LIPASE Stat Lab 02/20/24 15:30 Completed UA W/RFX UR CULTURE Stat Lab 02/20/24 15:07 Completed Medication Summary Discontinued Medications Generic Name Dose Route Start Last Admin Trade Name Freq PRN Reason Stop Dose Admin Sodium Chloride 1,000 mls @ 999 mls/hr 02/20/24 14:05 Sodium Chloride 0.9% 1000 Ml IV 02/20/24 15:05 .Q1H1M STA Morphine Sulfate 4 mg 02/20/24 14:05 Morphine Sulfate 4 Mg/Ml Injection IV 02/20/24 14:06 STAT ONE Ondansetron HCl 4 mg 02/20/24 14:05 Ondansetron Hcl 4 Mg/2 Ml Vial IV 02/20/24 14:06 STAT ONE Lab/Rad Data: Laboratory Result Diagrams 02/20/24 15:30 02/20/24 15:30 Laboratory Results 02/20/24 02/20/24 02/20/24 Range/Units 15:30 15:30 15:07 WBC 9.9 H (4.23-9.07) x10^3/uL RBC 5.67 (4.63-6.08) x10^6/uL Hgb 17.2 (13.7-17.5) g/dL Hct 50.8 (40.1-51.0) % MCV 89.6 (79.0-92.2) fL MCH 30.3 (25.7-32.2) pg MCHC 33.9 (32.3-36.5) g/dL RDW 14.2 (11.6-14.4) % Plt Count 283 (163-337) x10^3/uL MPV 9.6 (9.4-12.4) fL Gran % 67.2 (34.0-67.9) % Immature Gran % (Auto) 0.2 (0.001-0.429) % Nucleat RBC Rel Count 0.0 (0.00-0.2) % Eos # (Auto) 0.15 (0.04-0.54) x10^3/uL Immature Gran # (Auto) 0.02 (0.001-0.031) x10^3u/L Absolute Lymphs (auto) 2.49 (1.32-3.57) x10^3/uL Absolute Monos (auto) 0.57 (0.30-0.82) x10^3/uL Absolute Nucleated RBC 0.00 (0.00-0.012) x10^3u/L Lymphocytes % 25.1 (21.8-53.1) % Monocytes % 5.7 (5.3-12.2) % Eosinophils % 1.5 (0.8-7.0) % Basophils % 0.3 (0.2-1.2) % Absolute Granulocytes 6.66 H (1.78-5.38) x10^3/uL Basophils # 0.03 (0.01-0.08) x10^3/uL Sodium 137 (135-145) mmol/L Potassium 4.7 (3.5-5.1) mmol/L Chloride 106 (98-107) mmol/L Carbon Dioxide 24 (22-30) mmol/L Anion Gap 11.5 (5-15) MEQ/L BUN 7 L (9-20) mg/dL Creatinine 0.78 (0.66-1.25) mg/dL Estimated GFR 115.6 ML/MIN Glucose 94 (74-106) mg/dL Calcium 9.6 (8.4-10.2) mg/dL Total Bilirubin 0.50 (0.2-1.3) mg/dL AST 29 (17-59) U/L ALT 31 (0-50) U/L Alkaline Phosphatase 68 (38-126) U/L Serum Total Protein 7.2 (6.3-8.2) g/dL Albumin 4.3 (3.5-5.0) g/dL Lipase 103 (23-300) U/L Urine Color Yellow (Yellow) Urine Appearance Clear (Clear) Urine pH 7.0 (4.6-8.0) Ur Specific [place] 1.020 (1.005-1.030) Urine Protein Negative (Negative) Urine Glucose (UA) Negative (Negative) mg/dL Urine Ketones Negative (Negative) Urine Blood Negative (Negative) Urine Nitrite Negative (Negative) Urine Bilirubin Negative (Negative) Urine Urobilinogen 1.0 A (0.2) mg/dL Ur Leukocyte Esterase Negative (Negative) U Hyaline Cast (Auto) NONE SEEN (0-2) /LPF Urine Microscopic RBC 0-2 (0-5) /HPF Urine Microscopic WBC 0-2 (0-5) /HPF Ur Epithelial Cells None Seen (None Seen) /HPF Urine Bacteria None Seen (None Seen) /HPF Urine Culture Reflexed NO (NO) - Progress Progress: improved Progress Note: 02/20/24 16:28 38-year-old is evaluated for abdominal pain with diarrhea for the last 3 days with progressive worsening. Patient has minimal diffuse tenderness. No guarding or rebound tenderness. Offered fluids and symptomatic treatment but patient was a hard stick and refused to have any kind of IV placement. Patient workup showed white count of 9, fairly unremarkable chemistries, normal lipase. No UTI. CT abdomen pelvis is negative for any acute intra-abdominal pelvic findings. I believe patient has viral etiology symptoms, gastroenteritis, recommended Tylenol/Zofran, increase hydration and outpatient follow-up. Discussed signs symptoms of worsening needing return to ER which she seems understanding. Stable for discharge. Counseled pt/family regarding: lab results, diagnosis, need for follow-up, rad results Medical Desision Making - Diagnostic Testing Diagnostic test were ordered, analyzed, and reviewed by me: Yes Radiological Interpretation: Reviewed by me - Risk of complications The pt has a mod risk of morbidity or mortality based on: Need for prescription drug management - Departure Departure Disposition: Home Clinical Impression: Gastroenteritis Condition: Stable Critical Care Time: No Referrals: DOCTOR,NO FAMILY [Primary Care Provider] - Follow up with PCP 1 day Instructions: Severe Abdominal Pain, Adult (DC) Additional Instructions: Take Tylenol/Zofran as needed. Follow-up with primary care for reevaluation. Return to ER for intractable pain/vomiting/fever chills/diarrhea etc. Prescriptions: Ondansetron ODT 4 MG [Zofran Odt 4 mg] 1 ea PO QIDPRN PRN #7 tablet PRN Reason: n/v
--- NOTE | 2024-02-20 14:58 | XRAY ---
Indication: Abdomen pain and diarrhea. Multiple contiguous axial images obtained through abdomen and pelvis without contrast. Comparison: None Lung bases clear. Heart not enlarged. Noncontrasted stomach and bowel loops appear nonobstructed with normal appendix. Mild fecal debris in ascending and transverse colon. No free fluid/air. Remaining liver, gallbladder, pancreas, spleen, adrenal glands, kidneys, ureters, bladder, and aorta are unremarkable for noncontrast exam. Osseous structures intact with mild levoscoliosis centered at L3. Small fatty right inguinal hernia. Impression: Levoscoliosis and fatty right inguinal hernia. Remaining CT abdomen/pelvis without contrast exam is normal
[2024-02-20 15:42] LABS: Absolute Neutrophil Ct (ANC) 6.66 x10^3/uL (1.78-5.38); BASOPHIL % 0.3 % (0.2-1.2); Basophil (Absolute #) 0.03 x10^3/uL (0.01-0.08); Eosinophil % 1.5 % (0.8-7.0); Eosinophil (Absolute #) 0.15 x10^3/uL (0.04-0.54); Hematocrit 50.8 % (40.1-51.0); Hemoglobin 17.2 g/dL (13.7-17.5); IMMATURE GRAN # 0.02 x10^3u/L (0.001-0.031); IMMATURE GRAN % 0.2 % (0.001-0.429); Lymphocyte (Absolute #) 2.49 x10^3/uL (1.32-3.57); Lymphocytes % 25.1 % (21.8-53.1); Mean Cell Volume 89.6 fL (79.0-92.2); Mean Corpuscular Hemoglobin 30.3 pg (25.7-32.2); Mean Corpuscular Hgb Concent. 33.9 g/dL (32.3-36.5); Mean Platelet Volume 9.6 fL (9.4-12.4); Monocyte (Absolute #) 0.57 x10^3/uL (0.30-0.82); Monocytes % 5.7 % (5.3-12.2); Neutrophil % 67.2 % (34.0-67.9); Platelet Count 283 x10^3/uL (163-337); Red Blood Count 5.67 x10^6/uL (4.63-6.08); Red Cell Distribution Width 14.2 % (11.6-14.4); White Blood Count 9.9 x10^3/uL (4.23-9.07)
[2024-02-20 15:49] LABS: Appearance Clear (Clear); Bacteria None Seen /HPF (None Seen); Bilirubin Negative (Negative); Blood Negative (Negative); Epithelial Cells None Seen /HPF (None Seen); Glucose, Urine Negative (Negative); Hyaline Casts NONE SEEN /LPF (0-2); Ketones Negative (Negative); Leukocyte Esterase Negative (Negative); Nitrite Negative (Negative); Protein,Urine Dip Negative (Negative); RBC 0-2 /HPF (0-5); WBC 0-2 /HPF (0-5)
[2024-02-20 15:56] LABS: ALBUMIN 4.3 g/dL (3.5-5.0); ANION GAP 11.5 MEQ/L (5-15); BILIRUBIN,TOTAL 0.5 mg/dL (0.2-1.3); Calcium 9.6 mg/dL (8.4-10.2); Creatinine 1 0.78 mg/dL (0.66-1.25); EST GLOMERULAR FILTRATION RATE 115.6 ML/MIN; Potassium 4.7 mmol/L (3.5-5.1); Total Protein 7.2 g/dL (6.3-8.2)
[2024-02-20 15:59] LABS: ADD URINE CULTURE? NO (NO)
== END 2024-02-20 16:38 | disposition home or self-care (01) ==
LOC: ED 13:15
DX: A08.4 Viral intestinal infection, unspecified (principal); R10.11 Right upper quadrant pain; R19.7 Diarrhea, unspecified; R11.2 Nausea with vomiting, unspecified; I10 Essential (primary) hypertension; Z72.0 Tobacco use
CPT/HCPCS: 36415; 74176; 80053; 81001; 83690; 85025; 99283